=== PATIENT | male | born 1960 | race Caucasian/White ===

== ENCOUNTER 2020-06-07 06:42 | Day surgery (SDC) | payer OTHER ==
[~2020-06-07] VITALS: Ht 167.6 cm; Wt 90.8 kg
[~2020-06-07 06:42] MED LIST: AMLO5 PO; ATOR20; ATOR20 PO; CITA20 PO; CLON.1; Citalopram HBr40 MG PO; ERGO400 PO; Glucosamine Co1 EAC1 PO; HYDPAM50; HYDPAM50 PO; IBUP800; Inderal80 MG; Inderal80 MG PO; LEVSOD100 PO; LEVSOD50 PO; MORP30ER PO; MULTIVITAMINS1 EAC3 PO; NICOTINE PATCH TOP; OXYC10TA19 PO; OXYC5 PO; Prinivil10 MG PO; SUBOXONE 12 MG1 EACH; TRAZ50; Zestril30 MG; Zestril30 MG PO
--- NOTE | 2020-06-07 08:04 | NUR ---
06/07/20 0804 Shabnam Gould SIMETHICONE FLUSH THROUGH BIOPSY PORT ORDERED BY DR KULKARNI
--- NOTE | 2020-06-07 08:52 | NUR ---
06/07/20 0852 Jayna Posada BP 80/53 IN STEP DOWN UNIT, MD CALLAHAN WANTS A 250CC LR IVF BOLUS GIVEN IN RECOVERY.
== END 2020-06-07 09:11 | disposition home or self-care (01) ==
LOC: ORSCSDS 06:42
PROVIDERS: Student in an Organized Health Care Education/Training Program
PROC: 0DBK8ZX Excision of Ascending Colon, Via Natural or Artificial Opening Endoscopic, Diagnostic (ICD-10-PCS; principal; 2020-06-07 08:00)
DX: Z12.11 Encounter for screening for malignant neoplasm of colon (principal); D12.2 Benign neoplasm of ascending colon; K63.89 Other specified diseases of intestine; K57.30 Diverticulosis of large intestine without perforation or abscess without bleeding; K64.8 Other hemorrhoids; K64.4 Residual hemorrhoidal skin tags; I10 Essential (primary) hypertension; E78.5 Hyperlipidemia, unspecified; E03.9 Hypothyroidism, unspecified; Z79.899 Other long term (current) drug therapy
CPT/HCPCS: 88305; J0461; J2370; J2704; J7120

== ENCOUNTER → 2022-08-04 | Outpatient (CLI) | payer OTHER ==
[2022-08-04 13:26] LABS: Body Fluid Crystals NEG (NEGATIVE)
[2022-08-04 14:09] LABS: RBC Count, Synovial Fluid 788000 /mm3 (0-0); WBC Count, Synovial Fluid 1210 /mm3 (0-180)
[2022-08-04 14:14] LABS: BODY FLUID RBC 0.788 M/mm3 (0-0)
[2022-08-04 15:00] LABS: Appearance, Synovial Fluid Turbid (Clear); Color, Synovial Fluid Red (None-P Yel); Eos, Synovial Fluid 6 % (0-2); Lymphs, Synovial Fluid 7 % (0-15); Monocytes/Macrophages, Synovia 57 % (0-65); Neutrophils, Synovial Fluid 30 % (0-24)
== END | disposition home or self-care (01) ==
LOC: LAB 12:00 → LAB SHORT 12:00
PROVIDERS: Physician Assistant Surgical
DX: Z47.1 Aftercare following joint replacement surgery (principal); Z96.652 Presence of left artificial knee joint
CPT/HCPCS: 87070; 87075; 87205; 89051; 89060

== ENCOUNTER 2022-12-05 09:30 | Day surgery (SDC) | payer OTHER ==
[2022-12-05] VITALS (19 sets, daily range): BP systolic 86–117; BP diastolic 53–84
[~2022-12-05] VITALS: Ht 165.1 cm; Wt 90.4 kg
[~2022-12-05 09:30] MED LIST changes: +CYMBALTA30 M1 PO; +GLUCHON PO; +TRAM50 PO
--- NOTE | 2022-12-05 13:11 | NUR ---
1200 History, Chart, Medications and Allergies reviewed before start of procedure.PRE OP TEACHING DONE. UNABLE TO REMOVE GOLD RING ON LEFT HAND RING FINGER. RING WAS TAPED AND CONSENT TO LEAVE RING ON WAS SIGNED
--- NOTE | 2022-12-05 20:30 | NUR ---
ARRIVAL PT ARRIVED TO THE FLOOR FROM PACU WITH A REVISED L KNEE REPLACEMENT. PT ARRIVED IN NO DISTRESS, A/OX4, ON RA, AND AWAKE. PT REPORTS NUMBNESS TO BLE UNDER HIS KNEES, BUT CAN MOVE BOTH LEGS. PEDAL PULSES STRONG, CAP REFILL <3 SECONDS. VSS. PLAN TO AWAIT FOR SPINAL ANESTHESIA TO WEAR OFF, AWAIT FOR FIRST AMBULATION AND POSTOP VOID.
[2022-12-06 04:32] VITALS: BP 116/77
[2022-12-06 06:38] LABS: BASOPHILS ABSOLUTE AUTO 0.01 K/mm3 (0.00-0.23); BASOPHILS PERCENT AUTO 0 % (0-2); EOSINOPHILS PERCENT AUTO 0 % (0-6); Hematocrit 33.4 % (37.0-53.0); Hemoglobin 11.1 g/dL (13.5-17.5); IMMATURE GRAN ABSOLUTE AUTO 0.03 K/mm3 (0.00-0.10); IMMATURE GRAN PERCENT AUTO 0 % (0-1); LYMPHOCYTES ABSOLUTE AUTO 0.76 K/mm3 (0.84-5.20); LYMPHOCYTES PERCENT AUTO 8 % (21-46); MONOCYTES ABSOLUTE AUTO 0.36 K/mm3 (0.16-1.47); MONOCYTES PERCENT AUTO 4 % (4-13); Mean Corpuscular HGB 29.1 pg (26.0-34.0); Mean Corpuscular HGB Conc 33.2 g/dL (31.5-36.5); Mean Corpuscular Volume 88 fL (80-100); Mean Platelet Volume 9.3 fL (9.1-12.4); NEUTROPHILS ABSOLUTE AUTO 8.24 K/mm3 (1.96-9.15); NEUTROPHILS PERCENT AUTO 88 % (41-73); Platelet Count 194 K/mm3 (150-400); RDW Coefficient Variation 13.9 % (11.7-14.2); RDW Standard Deviation 44.6 fL (35.1-46.3); Red Blood Cell Count 3.81 M/mm3 (4.30-5.90)
[2022-12-06 06:59] LABS: Bun/Creatinine Ratio 16.3 (12.0-20.0); Calcium, Blood 8.8 mg/dL (8.5-10.1); Creatinine, Blood 1.23 mg/dL (0.60-1.20); Potassium, Blood 4.5 mmol/L (3.5-5.5)
[2022-12-06 07:34] VITALS: BP 121/75
[2022-12-06] MEDS ORDERED: Percocet 5-3251 EACH PO (09:06)
[2022-12-06] MEDS ORDERED: ASPI81CH PO (09:07)
--- NOTE | 2022-12-06 09:22 | NUR ---
DISCHARGE NOTE: PATIENT WAS EEDUCATED ON DISCHARGE INSTRUCTIONS. HE VERBALIZED UNDERSTANDING OF INSTRUCTIONS AND HAD NO FURTHER QUESTIONS AT THIS TIME. IV WAS TAKEN OUT AND WNL. HIS ALREADY GOT HIS HARD PERSCRIPTIONS FILLED YESTERDAY. HIS LEFT KNEE HAS AN AQUACEL THAT IS C/D/I. DENIES NUMBNESS OR TINGLING. CAN MOVE ALL FINGERS AND TOES WHEN ASKED. HE IS A SBA WITH FWW AND GAIT BELT. PATIENT IS DRESSED AND HAS PERSONAL ITEMS IN THE ROOM GATHERED. HE IS BEING WHEELCHAIRED OUT TO HIS WIFES CAR TO BE TAKEN HOME.
== END 2022-12-06 09:25 | disposition home or self-care (01) ==
LOC: ORSCMMR 09:30 → SURS 09:31 → PRE IP 09:31 → ORSCMMR 09:31 → PRE IP 10:00 → EDSTATUS 11:00 → SURS 19:42 → ORSCMMR 12-06 09:25
PROVIDERS: Orthopaedic Surgery
PROC: 0SRD0J9 Replacement of Left Knee Joint with Synthetic Substitute, Cemented, Open Approach (ICD-10-PCS; principal; 2022-12-05 10:00)
PROC: 0SPD0JZ Removal of Synthetic Substitute from Left Knee Joint, Open Approach (ICD-10-PCS; principal; 2022-12-05 10:00)
PROC: 0SPD04Z Removal of Internal Fixation Device from Left Knee Joint, Open Approach (ICD-10-PCS; principal; 2022-12-05 10:00)
DX: T84.063A Wear of articular bearing surface of internal prosthetic left knee joint, initial encounter (principal); M17.12 Unilateral primary osteoarthritis, left knee; M89.552 Osteolysis, left thigh; I10 Essential (primary) hypertension; E03.9 Hypothyroidism, unspecified; Z87.891 Personal history of nicotine dependence; I48.91 Unspecified atrial fibrillation; Z79.899 Other long term (current) drug therapy
CPT/HCPCS: 36415; 73560-LT; 80048; 85025; 87071; 87075; 87205; 88305; 88331; 97110; 97161; 97530; A9270; C1713; C1776; J0171; J0690; J0735; J1100; J1170; J1885; J2405; J2704; J2795; J3010; J7120

== ENCOUNTER 2023-06-18 17:04 | Emergency (ER) | payer OTHER ==
[~2023-06-18] VITALS: Ht 167.6 cm; Wt 90.7 kg
[~2023-06-18 17:04] MED LIST changes: +ASPI81CH PO; +Percocet 5-3251 EACH PO
[2023-06-18 17:32] LABS: BASOPHILS ABSOLUTE AUTO 0.15 K/mm3 (0.00-0.23); BASOPHILS PERCENT AUTO 2 % (0-2); EOSINOPHILS PERCENT AUTO 4 % (0-6); Hemoglobin 15.7 g/dL (13.5-17.5); IMMATURE GRAN ABSOLUTE AUTO 0.02 K/mm3 (0.00-0.10); IMMATURE GRAN PERCENT AUTO 0 % (0-1); LYMPHOCYTES ABSOLUTE AUTO 2.26 K/mm3 (0.84-5.20); LYMPHOCYTES PERCENT AUTO 30 % (21-46); MONOCYTES ABSOLUTE AUTO 0.68 K/mm3 (0.16-1.47); MONOCYTES PERCENT AUTO 9 % (4-13); Mean Corpuscular HGB 29.7 pg (26.0-34.0); Mean Corpuscular HGB Conc 34.1 g/dL (31.5-36.5); Mean Corpuscular Volume 87 fL (80-100); Mean Platelet Volume 9.2 fL (9.1-12.4); NEUTROPHILS ABSOLUTE AUTO 4.16 K/mm3 (1.96-9.15); NEUTROPHILS PERCENT AUTO 55 % (41-73); Platelet Count 226 K/mm3 (150-400); RDW Coefficient Variation 14.2 % (11.7-14.2); RDW Standard Deviation 45.4 fL (35.1-46.3); Red Blood Cell Count 5.29 M/mm3 (4.30-5.90); White Blood Cell Count 7.57 K/mm3 (4.00-11.30)
[2023-06-18 17:53] LABS: Albumin, Blood 4.1 g/dL (3.4-5.0); Albumin/Globulin Ratio 1.5 (0.8-1.8); Bilirubin, Total 0.3 mg/dL (0.1-1.0); Bun/Creatinine Ratio 19.1 (12.0-20.0); Calcium, Blood 9.8 mg/dL (8.5-10.1); Creatinine, Blood 1.31 mg/dL (0.60-1.20); Globulin, Blood 2.8 g/dL (2.2-4.0); Total Protein, Blood 6.9 g/dL (6.4-8.2)
[2023-06-18 20:06] LABS: Influenza A, PCR NEGATIVE (NEGATIVE); Influenza B, PCR NEGATIVE (NEGATIVE); Resp Syncytial Virus, PCR NEGATIVE (NEGATIVE); SARS-Cov-2 (COVID-19) PCR, MMC NEGATIVE (NEGATIVE)
[2023-06-18 20:12] LABS: Free Thyroxine 1.04 ng/dL (0.70-1.60); Thyroid Stimulating Hormone 6.8 uIU/mL (0.360-4.800)
[2023-06-18 20:30] VITALS: BP 145/83
== END 2023-06-18 20:46 | disposition home or self-care (01) ==
LOC: ER 17:04
PROVIDERS: Student in an Organized Health Care Education/Training Program
DX: R07.89 Other chest pain (principal); I10 Essential (primary) hypertension; R53.83 Other fatigue; F32.A Depression, unspecified; F17.210 Nicotine dependence, cigarettes, uncomplicated; Z88.6 Allergy status to analgesic agent; Z79.899 Other long term (current) drug therapy; Z79.82 Long term (current) use of aspirin
CPT/HCPCS: 0241U; 71046; 80053; 83735; 84439; 84443; 84484; 85025; 93005; 93010; 99284-25

== ENCOUNTER 2023-11-15 13:56 | Inpatient (IN) | payer OTHER ==
[~2023-11-15] VITALS: Ht 167.6 cm; Wt 102.4 kg
[2023-11-17 07:06] VITALS: BP 143/98
== END 2023-11-17 13:22 | disposition home or self-care (01) | DRG 871 ==
LOC: ER 13:56 → MEDS 21:27 → PCU 21:27 → MEDS 11-16 18:40
PROVIDERS: ADMIT Internal Medicine
DX: A41.9 Sepsis, unspecified organism (principal); J18.9 Pneumonia, unspecified organism; N17.9 Acute kidney failure, unspecified; R65.20 Severe sepsis without septic shock; E83.52 Hypercalcemia; E78.5 Hyperlipidemia, unspecified; I10 Essential (primary) hypertension; E03.9 Hypothyroidism, unspecified; F41.8 Other specified anxiety disorders; G89.29 Other chronic pain; Z88.6 Allergy status to analgesic agent; Z79.890 Hormone replacement therapy; Z96.641 Presence of right artificial hip joint; Z96.652 Presence of left artificial knee joint; Z98.1 Arthrodesis status; Z87.891 Personal history of nicotine dependence

== ENCOUNTER 2024-01-11 19:33 | Emergency (ER) | payer OTHER ==
[~2024-01-11] VITALS: Ht 167.6 cm; Wt 99.8 kg
[~2024-01-11 19:33] MED LIST changes: +AZIT500 PO; +CEFP200 PO; +DULOXETINE HCL60 M1 PO; +HYDHCL25 PO; +HYDROCODONE-AC1 EA10 PO; +HYDROCODONE-AC1 EA19 PO; +LACT PO; +LEVSOD112 PO; +ONDA4ODT MM; +PREG150 PO; +PREG50 PO; +TRAZ50 PO; +ZESTRIL40 M1 PO
[2024-01-11] MEDS ORDERED: Ondansetron HCl 2 MG / ML 2ML Vial IV ONE (19:40)
[2024-01-11 20:28] LABS: Influenza A, PCR NEGATIVE (NEGATIVE); Influenza B, PCR NEGATIVE (NEGATIVE); Resp Syncytial Virus, PCR NEGATIVE (NEGATIVE); SARS-Cov-2 (COVID-19) PCR, MMC NEGATIVE (NEGATIVE)
[2024-01-11 20:33] LABS: BASOPHILS ABSOLUTE AUTO 0.08 K/mm3 (0.00-0.23); BASOPHILS PERCENT AUTO 1 % (0-2); EOSINOPHILS ABSOLUTE AUTO 0.19 K/mm3 (0.00-0.68); EOSINOPHILS PERCENT AUTO 2 % (0-6); Hematocrit 39.7 % (37.0-53.0); Hemoglobin 12.8 g/dL (13.5-17.5); IMMATURE GRAN ABSOLUTE AUTO 0.03 K/mm3 (0.00-0.10); IMMATURE GRAN PERCENT AUTO 0 % (0-1); LYMPHOCYTES ABSOLUTE AUTO 1.28 K/mm3 (0.84-5.20); LYMPHOCYTES PERCENT AUTO 15 % (21-46); MONOCYTES ABSOLUTE AUTO 0.71 K/mm3 (0.16-1.47); MONOCYTES PERCENT AUTO 8 % (4-13); Mean Corpuscular HGB 28.4 pg (26.0-34.0); Mean Corpuscular HGB Conc 32.2 g/dL (31.5-36.5); Mean Corpuscular Volume 88 fL (80-100); Mean Platelet Volume 9.1 fL (9.1-12.4); NEUTROPHILS ABSOLUTE AUTO 6.28 K/mm3 (1.96-9.15); NEUTROPHILS PERCENT AUTO 73 % (41-73); Platelet Count 262 K/mm3 (150-400); RDW Standard Deviation 45.3 fL (35.1-46.3); Red Blood Cell Count 4.51 M/mm3 (4.30-5.90); White Blood Cell Count 8.57 K/mm3 (4.00-11.30)
[2024-01-11 20:54] LABS: Albumin, Blood 3.7 g/dL (3.4-5.0); Albumin/Globulin Ratio 1.1 (0.8-1.8); Bilirubin, Total 0.5 mg/dL (0.1-1.0); Bun/Creatinine Ratio 26.9 (12.0-20.0); Calcium, Blood 9.6 mg/dL (8.5-10.1); Creatinine, Blood 1.86 mg/dL (0.60-1.20); Globulin, Blood 3.4 g/dL (2.2-4.0); Potassium, Blood 4.5 mmol/L (3.5-5.5); Total Protein, Blood 7.1 g/dL (6.4-8.2)
[2024-01-11] MEDS ORDERED: NS 1,000 ML IV SCH (21:00)
[2024-01-11 21:05] LABS: Magnesium, Blood 2.4 mg/dL (1.6-2.4)
[2024-01-11 22:00] LABS: Source, Urine Clean Catch
[2024-01-11 22:06] LABS: Base Excess Venous 4.4 mmol/L; Bicarbonate Venous 26.1 mmol/L (24.0-30.0); PCO2 Venous 63 mmHg (38-42)
[2024-01-11 22:16] LABS: Bilirubin, Urine Neg (Neg); Blood, Urine 1+ (Neg); Glucose Qualitative, Urine Neg (Neg); Ketones, Urine 1+ (Neg); Leukocyte Esterase, Urine Neg (Neg); Nitrite, Urine Neg (Neg); Protein, Urine 1+ (Neg); Specific Gravity, Urine 1.015 (1.003-1.022); Urobilinogen, Urine NORM (Normal)
[2024-01-11 22:24] LABS: Appearance, Urine Clear (Clear); Color, Urine Yellow (P-Yellow)
[2024-01-11 22:26] LABS: Bacteria Few /hpf; Red Blood Cells, Urine 0-2 /hpf (0-2); Squamous Epithelial Cells Few /hpf (Few); White Blood Cells, Urine 0-2 /hpf (0-5)
[2024-01-12] VITALS: BP 121/88
[2024-01-12] MEDS ORDERED: BUPRENORPHINE HC2 MG SL ×2 (11:42)
== END 2024-01-12 00:08 | disposition home or self-care (01) ==
LOC: ER 19:33
PROVIDERS: Emergency Medicine; Student in an Organized Health Care Education/Training Program
DX: G93.41 Metabolic encephalopathy (principal); E87.29 Other acidosis; N17.9 Acute kidney failure, unspecified; T40.495A Adverse effect of other synthetic narcotics, initial encounter; Z88.6 Allergy status to analgesic agent; Z79.899 Other long term (current) drug therapy; I10 Essential (primary) hypertension; Z87.891 Personal history of nicotine dependence
CPT/HCPCS: 0241U; 71045; 80053; 81001; 82140; 82803; 83735; 84484; 85025; 93005; 93010; 99285-25; J7030

== ENCOUNTER 2024-01-12 08:48 | Inpatient (IN) | payer OTHER ==
[2024-01-12] VITALS (20 sets, daily range): BP systolic 71–143; BP diastolic 53–86
[~2024-01-12] VITALS: Ht 167.6 cm; Wt 98.0 kg
[2024-01-12 09:46] LABS: BASOPHILS ABSOLUTE AUTO 0.06 K/mm3 (0.00-0.23); BASOPHILS PERCENT AUTO 1 % (0-2); EOSINOPHILS ABSOLUTE AUTO 0.24 K/mm3 (0.00-0.68); EOSINOPHILS PERCENT AUTO 3 % (0-6); Hematocrit 37.7 % (37.0-53.0); Hemoglobin 12.5 g/dL (13.5-17.5); IMMATURE GRAN ABSOLUTE AUTO 0.02 K/mm3 (0.00-0.10); IMMATURE GRAN PERCENT AUTO 0 % (0-1); LYMPHOCYTES ABSOLUTE AUTO 1.58 K/mm3 (0.84-5.20); LYMPHOCYTES PERCENT AUTO 22 % (21-46); MONOCYTES ABSOLUTE AUTO 0.81 K/mm3 (0.16-1.47); MONOCYTES PERCENT AUTO 11 % (4-13); Mean Corpuscular HGB 29.3 pg (26.0-34.0); Mean Corpuscular HGB Conc 33.2 g/dL (31.5-36.5); Mean Corpuscular Volume 89 fL (80-100); Mean Platelet Volume 11.3 fL (9.1-12.4); NEUTROPHILS ABSOLUTE AUTO 4.49 K/mm3 (1.96-9.15); NEUTROPHILS PERCENT AUTO 62 % (41-73); Platelet Count 409 K/mm3 (150-400); RDW Coefficient Variation 14.4 % (11.7-14.2); RDW Standard Deviation 45.8 fL (35.1-46.3); Red Blood Cell Count 4.26 M/mm3 (4.30-5.90)
[2024-01-12 10:04] LABS: Albumin, Blood 3.5 g/dL (3.4-5.0); Albumin/Globulin Ratio 1.1 (0.8-1.8); Bilirubin, Total 0.4 mg/dL (0.1-1.0); Bun/Creatinine Ratio 27.4 (12.0-20.0); Calcium, Blood 9.5 mg/dL (8.5-10.1); Creatinine, Blood 1.46 mg/dL (0.60-1.20); Globulin, Blood 3.2 g/dL (2.2-4.0); Potassium, Blood 4.5 mmol/L (3.5-5.5); Total Protein, Blood 6.7 g/dL (6.4-8.2)
[2024-01-12] MEDS ORDERED: NS 1,000 ML IV SCH ×2 (10:15→13:00)
[2024-01-12] MEDS ORDERED: LORazepam 2 MG/ML 1ML Injection IV ONE (10:30)
[2024-01-12 10:33] LABS: Base Excess Venous -0.8 mmol/L; Bicarbonate Venous 22.4 mmol/L (24.0-30.0); PCO2 Venous 60 mmHg (38-42); pH Blood Venous 7.25 (7.34-7.37)
[2024-01-12] MEDS ORDERED: BUPRENORPHINE HC2 MG SL ×2 (11:42)
[2024-01-12] MEDS ORDERED: Haloperidol Lactate Inj. 5 MG/ML Injection IV ONE (13:25)
[2024-01-12] MEDS ORDERED: Naloxone HCl 0.4MG / ML 1ML Vial IV PRN (13:55)
[2024-01-12 14:15] LABS: Source, Urine Clean Catch
[2024-01-12 14:22] LABS: Appearance, Urine Clear (Clear); Bilirubin, Urine Neg (Neg); Blood, Urine Neg (Neg); Glucose Qualitative, Urine Neg (Neg); Ketones, Urine 1+ (Neg); Leukocyte Esterase, Urine Neg (Neg); Nitrite, Urine Neg (Neg); Protein, Urine Neg (Neg); Urobilinogen, Urine NORM (Normal)
[2024-01-12 14:23] LABS: Color, Urine Pale Yellow (P-Yellow)
[2024-01-12 14:33] LABS: U Amphetamine Screen Not Detected; U Barbituate Screen Not Detected; U Benzodiazapine Screen Not Detected; U Buprenorphine Screen DETECTED; U Cannabinoids Screen DETECTED; U Cocaine Screen Not Detected; U Methadone Screen Not Detected; U Methamphetamine Screen Not Detected; U Opiates Screen Not Detected; U Oxycodone Screen Not Detected; U Phencyclidine Screen Not Detected
[2024-01-12] MEDS ORDERED: Naloxone HCl 0.4MG / ML 1ML Vial IV ONE (15:55)
[2024-01-12] MEDS ORDERED: Nicotine 14 MG PATCH TOP ONE (16:00)
[2024-01-12] MEDS ORDERED: Pregabalin 50 MG Capsule PO SCH (16:00)
[2024-01-12] MEDS ORDERED: LORazepam 2 MG/ML 1ML Injection ONE (16:40)
[2024-01-12] MEDS ORDERED: OLANZapine 10 MG Vial IM ONE (16:40)
[2024-01-12] MEDS ORDERED: LORazepam 2 MG/ML 1ML Injection IV PRN (16:40)
[2024-01-12] MEDS ORDERED: Lactated Ringer's 1,000 ML IV ONE (19:32)
[2024-01-12 20:04] LABS: PCO2 Venous 41.2 mmHg (38-42); pH Blood Venous 7.32 (7.34-7.37)
[2024-01-12 20:35] LABS: Source, Urine Foley catheter
[2024-01-12 20:39] LABS: Bilirubin, Urine Neg (Neg); Blood, Urine Neg (Neg); Glucose Qualitative, Urine Neg (Neg); Ketones, Urine 3+ (Neg); Leukocyte Esterase, Urine Neg (Neg); Nitrite, Urine Neg (Neg); Protein, Urine Neg (Neg); Specific Gravity, Urine 1.015 (1.003-1.022); Urobilinogen, Urine NORM (Normal)
[2024-01-12 20:41] LABS: Appearance, Urine Clear (Clear); Color, Urine Yellow (P-Yellow)
[2024-01-12] MEDS ORDERED: Lactated Ringer's 1,000 ML IV SCH (21:20)
[2024-01-13] VITALS (32 sets, daily range): BP systolic 89–140; BP diastolic 48–102
[2024-01-13 04:31] LABS: BASOPHILS ABSOLUTE AUTO 0.06 K/mm3 (0.00-0.23); BASOPHILS PERCENT AUTO 1 % (0-2); EOSINOPHILS ABSOLUTE AUTO 0.23 K/mm3 (0.00-0.68); EOSINOPHILS PERCENT AUTO 4 % (0-6); Hematocrit 37.3 % (37.0-53.0); Hemoglobin 11.7 g/dL (13.5-17.5); IMMATURE GRAN ABSOLUTE AUTO 0.01 K/mm3 (0.00-0.10); IMMATURE GRAN PERCENT AUTO 0 % (0-1); LYMPHOCYTES ABSOLUTE AUTO 1.23 K/mm3 (0.84-5.20); LYMPHOCYTES PERCENT AUTO 21 % (21-46); MONOCYTES ABSOLUTE AUTO 0.72 K/mm3 (0.16-1.47); MONOCYTES PERCENT AUTO 13 % (4-13); Mean Corpuscular HGB Conc 31.4 g/dL (31.5-36.5); Mean Corpuscular Volume 89 fL (80-100); NEUTROPHILS ABSOLUTE AUTO 3.51 K/mm3 (1.96-9.15); NEUTROPHILS PERCENT AUTO 61 % (41-73); Platelet Count 218 K/mm3 (150-400); RDW Coefficient Variation 14.2 % (11.7-14.2); RDW Standard Deviation 45.9 fL (35.1-46.3); Red Blood Cell Count 4.18 M/mm3 (4.30-5.90); White Blood Cell Count 5.76 K/mm3 (4.00-11.30)
[2024-01-13 05:01] LABS: Anion Gap 11 mmol/L (3-11); Blood Urea Nitrogen 28 mg/dL (8-24); Bun/Creatinine Ratio 24.8 (12.0-20.0); CO2, Blood 24 mmol/L (21-32); Calcium, Blood 8.9 mg/dL (8.5-10.1); Chloride, Blood 111 mmol/L (98-108); Creatinine, Blood 1.13 mg/dL (0.60-1.20); Glomerular Filtration Rate 73 (60-); Glucose, Blood 64 mg/dL (70-99); Phosphorus, Blood 1.6 mg/dL (2.5-4.9); Potassium, Blood 4.4 mmol/L (3.5-5.5); Sodium, Blood 142 mmol/L (136-145)
[2024-01-13] MEDS ORDERED: D5W-LR 1,000 ML IV SCH (05:40)
[2024-01-13] MEDS ORDERED: Dextrose 50% 50 ML Syringe IV ONE (05:40)
--- NOTE | 2024-01-13 06:40 | NUR ---
191 Assumed care of pt, bedside report completed, at bedside. Reviewed shift plan of care with , all questions answered. 1944 MD at [facility]. Reviewed pt condition and plan for the shift. New orders. received. 2129 Pt awake and agitation/combative, requiring 2-3 staff members to keep in bed. Will not keep BiPap on, O2 via NC placed. Concerned regarding prior somnulence, will monitor for need of supplemental medication for anxiety/agitation. 2229 Ativan 1mg IVP given with good result. Pt able to keep BiPap on at this time. 0500 Pt removed BiPap and attempted to get out pf bed. Pt speaking at this time, though refuses to answer questions, repeated attempts to climb out of bed. Able to be off BiPap at this time, pt on RA, will continue cont pulse ox. Ativan 1mg IVP given. 0545 Serum glucose 64, CBG 56. Call to MD for new orders. Will give D50 and change IVF to D5LR. 0630 CBG 114, requiring very frequent redirection to stay in bed and not pull at IV/Moore/Tele. Will report to Day shift RN and review neuro status.
[2024-01-13] MEDS ORDERED: Enoxaparin 40 MG/0.4 ML SYR SC SCH (09:00)
[2024-01-13] MEDS ORDERED: Nicotine 14 MG PATCH TOP SCH (09:00)
[2024-01-13] MEDS ORDERED: Naloxone HCl 0.4MG / ML 1ML Vial IV ONE (11:00)
--- NOTE | 2024-01-13 11:24 | NUR ---
PT RECEIVED 0.4MG NARCAN IVP, THERE WAS NO APPRECIABLE RESPONSE TO THE NARCAN PUSH. PT WAKES TO VERBAL STIMULI, HE IS RESTING WELL WTITH EYES CLOSED AT THIS TIME. AGITATION REMAINS WELL CONTROLLED SINCE AM DOSE OF ATIVAN. PT REMAINS WITH BIPAP SETTINGS 20/10 AND 35%, HE IS TOLERATING BIPAP WELL.
[2024-01-13] MEDS ORDERED: Naloxone HCl 1MG / ML 2ML SYR IV ONE (12:40)
[2024-01-13 13:06] LABS: Free Thyroxine 0.94 ng/dL (0.70-1.60); Triiodothyronine, Free 1.66 pg/mL (2.18-3.98)
--- NOTE | 2024-01-13 13:30 | NUR ---
PT WAS ALERT, LOOKING AROUND AT FAMILY, STATED THAT CONCTACTS MIGHT BE IN EYES, SHE ATTEMPTED TO REMOVE THEM PT BECAME VERY AGITATED, REMAINS CONFUSED PULLING AT LINES. 1MG NARCAN ADMINISTERED WITHOUT CHANGE TO MENTATION, HE WAS AGITATED BEFORE ADMINISTRATION. NUMEROUS ATTEMPTS ARE MADE TO REDIRECT WITHOUT SUCCESS. REPEAT DOSE OF ATIVAN WAS GIVE, WHICH TOOK ABOUT 10 MINUTES FOR PT TO CALM DOWN ADN STOP PULLING LINES, AND ATTEMPTING TO EXIT BED. PT BECOMES MORE AGITATED WHEN FAMILY GETS CLOSE
[2024-01-13] MEDS ORDERED: DiphenhydrAMINE HCl 50 MG Cap PO ONE (15:00)
--- NOTE | 2024-01-13 15:50 | NUR ---
REPORT TO MINDY RN IN ICU. PT AND BELONGINGS WERE TRANSFERED TO ICU 3. PT'S HOME MEDICATIONS WERE COUNTED, SPOUSE HAD REPORTED THAT 2 BUPRENORPHINE WERE MISSING FROM HIS BOTTLE THIS WAS CONFIRMED THIS RN COUNTED. IT WAS NOTED THAT 10 CAPSULES OF 100mg LYRICA ARE ALSO MISSING FROM HIS BOTTLES.
[2024-01-13 16:32] LABS: Base Excess Venous -0.8 mmol/L; Bicarbonate Venous 24.3 mmol/L (24.0-30.0); PCO2 Venous 30.9 mmHg (38-42); pH Blood Venous 7.48 (7.34-7.37)
[2024-01-13] MEDS ORDERED: LORazepam 2 MG/ML 1ML Injection IV PRN (16:55)
--- NOTE | 2024-01-13 17:59 | NUR ---
ASSUMPTION OF CARE/ SUMMARY PT ARRIVED TO ICU FROM PCU VIA GURNEY, SLIDER SHEET TX TO ICU BED. PT ALERT UPON ARRIVAL BUT INCONSISTENLY FOLLOWING COMMANDS. OCCASIONALLY RESPONDING TO QUESTIONS WITH RANDOM WORDS. PT PULLING LINES AND CORDS OFF, ATTEMPTING TO GET OUT OF BED, VERY DIFFICULT TO REDIRECT. PRECEDEX GTT INITIATED. PT CURRENTLY RESTING COMFORTABLY. CONDOM CATHETER PLACED PT IS INCONTINENT OF URINE. NO BM. MONITORING CLOSELY SITTER IS NO LONGER AT BEDSIDE.
[2024-01-13 22:54] LABS: Base Excess Venous 2.8 mmol/L; Bicarbonate Venous 27.1 mmol/L (24.0-30.0); PCO2 Venous 33.4 mmHg (38-42)
[2024-01-14] VITALS (18 sets, daily range): BP systolic 116–171; BP diastolic 53–109
[2024-01-14] MEDS ORDERED: LORazepam 2 MG/ML 1ML Injection IV ONE (04:40)
[2024-01-14] MEDS ORDERED: OLANZapine 10 MG Vial IM ONE (04:40)
[2024-01-14] MEDS ORDERED: OLANZapine 10 MG Vial ONE (04:42)
--- NOTE | 2024-01-14 05:02 | NUR ---
VISHNU TEJADA PT WOKE SPONTANIOUSLY AND WAS TRYING TO GET OUT OF BED UNSAFELY. THIS RN ATTEMPTED TO REORIENT AND REDIRECT PT; PT STATED THAT HE HAD TO URINATE AND THIS RN ATTEMPTING TO GET URINAL FOR PT. HE WAS STATING THAT WE WERE LIEING AND WAS YELLING/SCREAMING OUT FOR HELP. HE THEN STARTED TO SWING HIS FISTS AT THIS RN AND TWO OTHER RN'S FOLLOWED BY TRYING TO KICK A FOURTH RN. VISHNU TEJADA WAS CALLED OVERHEAD AND A CALL WAS MADE TO HOSPITALIST. PT PLACED IN 4-POINT RESTRAINTS. NEW ORDERS PROVIDED FOR ADDITIONAL ATIVAN, ZYPREXA, AND TO PLACE A LEVINE CATH FOR RETENTION.
[2024-01-14 05:03] LABS: Source, Urine Foley catheter
[2024-01-14 05:06] LABS: Bilirubin, Urine Neg (Neg); Blood, Urine Neg (Neg); Glucose Qualitative, Urine Neg (Neg); Ketones, Urine 2+ (Neg); Leukocyte Esterase, Urine Neg (Neg); Nitrite, Urine Neg (Neg); Protein, Urine Neg (Neg); Specific Gravity, Urine 1.005 (1.003-1.022); Urobilinogen, Urine NORM (Normal)
[2024-01-14 05:22] LABS: Appearance, Urine Clear (Clear); Color, Urine Yellow (P-Yellow)
[2024-01-14] MEDS ORDERED: OLANZapine 10 MG Vial IM PRN (05:40)
--- NOTE | 2024-01-14 07:15 | NUR ---
END OF SHIFT SUMMARY PT WAS LABILE WITH RASS ANYWHERE FROM -3 TO +4; PRECEDEX INFUSED ALL NIGHT AND TITRATED UP TO 1.4MCG/KG/HR; HE WAS STARTING TO MAKE FULL STATEMENTS WHEN RASS +4; PRN ATIVAN AND ZYPREXA GIVEN. SPO2 >92% ON RA. AFEBRILE. HR 70-80'S; BP STABLE. NO BM THIS SHIFT. LEVINE PLACED AFTER VISHNU YANG. D5LR INFUSING AT 125ML/HR. REPORT GIVEN TO AM RN.
[2024-01-14] MEDS ORDERED: Ondansetron HCl 2 MG / ML 2ML Vial ONE (12:32)
[2024-01-14] MEDS ORDERED: Ondansetron HCl 2 MG / ML 2ML Vial IV PRN (12:35)
--- NOTE | 2024-01-14 13:49 | NUR ---
Upon receiving a referral for spiritual care, I visited the patient. His spouse, Lainey, was present. She told me about the many stressors that they are facing. After yrs of caring for her parents they and so I supplied grief support. She expressed her concerns about her 's complicated medical case, her own stress levels and mentioned her gratitude for the family, presybeterian members and friends that were praying. I gladly provided prayer and anxiety containment. Lainey voiced her appreciation for the visit. Spiritual care will remain available.
[2024-01-14] MEDS ORDERED: Lidocaine 2% Jelly Uro-Jet UR ONE (16:25)
--- NOTE | 2024-01-14 18:08 | NUR ---
Summary. Pt rested in bed this shift. Precedex off since the am, pt mentation improved. Pt globally confused but oriented to self, surroundings, person. Spouse at bedside for much of shift. Pt is calm and cooperative with care, vs stable. See chart for further details.
[2024-01-14] MEDS ORDERED: Acetaminophen 325 MG TABLET PO PRN (21:25)
--- NOTE | 2024-01-14 22:29 | NUR ---
ASSUMED CARE AT 1900 PT LAYING IN BED IRRITABLE. HE IS ALERT BUT ONLY ORIENTED TO SELF AND PERSON; HE IS FORMING SENTENCES BUT IS PARANOID AND LABILE WITH MOOD; HE IS STATING THAT HIS DID THIS TO HIM AND THAT HE IS NOT IN THE HOSPITAL; IS AT BEDSIDE. HE IS OVER ESTAMATING HIS ABILITY TO SAFELY GET OUT OF BED. WITH A WALKER HE STOOD AT THE EDGE OF THE BED AND WAS MODERATLY TREMULOUS ALONG WITH HIS HR INCREASING TO THE 150'S. HE IS FREQUENTLY ASKING TO GET UP TO USE THE RESTROOM AND CANNOT BE REORIENTED OR REDIRECTED FROM THIS STIMULUS; HAS BEEN EDUCATED FREQUENTLY BY SEVERAL DIFFERENT RN'S AND HIS THAT HE HAS A CATH AND HE CONTINOUS TO FIXATE ON NEEDING TO URINATE; PRN ZYPREXA GIVEN AND MILDLY HELPFUL; PRECEDEX OFF. SPO2 > 94% ON RA. TEMP OF 100.3, CALLED HOSPITALIST WHO GAVE ORDERS FOR PRN TYLENOL. HR 120-130'S WHILE AT REST IN BED. BP STABLE. ABD MODERATLY DISTENDED AND MORE FIRM; NO BM TODAY. LEVINE IN PLACE AND DRAINING TO GRAVITY. D5W/LR INFUSING AT 125ML/HR. SEE SHIFT ASSESSMENT FOR FULL ASSESSMENT.
--- NOTE | 2024-01-14 23:18 | NUR ---
UPDATE PT CONT TO BE RESTLESS AND ATTEMPTING TO UNSAFELY GET OUT OF BED NEEDED TO URINATE. CONT TO BE EDUCATED ON CATH AND ATTEMPTING TO REORIENT PT TO THE HOSPITAL. PT AT BEDSIDE WHO IS ALSO ATTEMPTING TO KEEP PT SAFE. PT IS ANGRY AND MAKING STATEMENT LIKE "I'M SO MAD!"; ATTEMPTING TO DE ESCALATE PT BEHAVIOR BUT HE CONT TO BE ANGRY. CALL MADE TO HOSPITALIST WHO PROVIDED ORDERS TO RESTART PRECEDEX AND TRANSFER BACK TO ICU STATUS. PT CONT AT BEDSIDE. PRECEDEX STARTED AT 0.2MCG/KG/HR.
[2024-01-15] VITALS (17 sets, daily range): BP systolic 103–169; BP diastolic 59–98
[2024-01-15 03:35] LABS: BASOPHILS ABSOLUTE AUTO 0.05 K/mm3 (0.00-0.23); BASOPHILS PERCENT AUTO 1 % (0-2); EOSINOPHILS ABSOLUTE AUTO 0.21 K/mm3 (0.00-0.68); EOSINOPHILS PERCENT AUTO 4 % (0-6); IMMATURE GRAN ABSOLUTE AUTO 0.01 K/mm3 (0.00-0.10); IMMATURE GRAN PERCENT AUTO 0 % (0-1); LYMPHOCYTES ABSOLUTE AUTO 0.94 K/mm3 (0.84-5.20); LYMPHOCYTES PERCENT AUTO 17 % (21-46); MONOCYTES ABSOLUTE AUTO 0.56 K/mm3 (0.16-1.47); MONOCYTES PERCENT AUTO 10 % (4-13); Mean Corpuscular HGB 28.9 pg (26.0-34.0); Mean Corpuscular HGB Conc 33.3 g/dL (31.5-36.5); Mean Corpuscular Volume 87 fL (80-100); Mean Platelet Volume 8.7 fL (9.1-12.4); NEUTROPHILS ABSOLUTE AUTO 3.73 K/mm3 (1.96-9.15); NEUTROPHILS PERCENT AUTO 68 % (41-73); Platelet Count 221 K/mm3 (150-400); RDW Coefficient Variation 14.2 % (11.7-14.2); RDW Standard Deviation 44.6 fL (35.1-46.3); Red Blood Cell Count 4.15 M/mm3 (4.30-5.90)
[2024-01-15 03:55] LABS: Bun/Creatinine Ratio 9.1 (12.0-20.0); Calcium, Blood 8.7 mg/dL (8.5-10.1); Creatinine, Blood 0.99 mg/dL (0.60-1.20); Potassium, Blood 3.5 mmol/L (3.5-5.5)
--- NOTE | 2024-01-15 06:37 | NUR ---
END OF SHIFT SUMMARY NO ACUTE EVENTS SINCE LAST NOTE. PRECEDEX TITRATED UP TO 0.4MCG/KG/HR TO ACHIEVE A RASS OF -1; HE HAS BEEN SLEEPING AND WAKES EASILY TO VERBAL STIMULI. PLACED ON 2L NC WHILE SLEEPING TO MAINTAIN SPO2 >90%. TEMP IMPROVED SINCE TYLENOL. HR 90-120. SBP 120-130'S. ABD CONT TO BE DISTENDED; NO BM THIS SHIFT. LEVINE IN PLACE AND DRAINING ADEQUATE OUTPUT. D5W/LR INFUSING AT 125ML/HR. WILL REPORT TO AM RN WHEN AVAILABLE.
[2024-01-15] MEDS ORDERED: D5W-1/2NS 1,000 ML IV SCH (07:40)
[2024-01-15 08:08] LABS: RETIC HGB EQUIVALENT 31.9 pg (28.20-36.60); RETICULOCYTE ABSOLUTE 0.0901 M/mm3 (0.0200-0.1100); RETICULOCYTE COUNT PERCENT 2.17 % (0.50-2.50)
[2024-01-15 08:23] LABS: Percent Saturation 7.8 % (20.0-50.0)
--- NOTE | 2024-01-15 09:08 | NUR ---
ASSUMED CARE BEDSIDE REPORT FROM GAGAN AGUIRRE AT 0700. PT RESTING IN BED. WAKES c VERBAL STIMULI, RETURNS TO SLEEP WHEN UNDISTURBED. PRECEDEX GTT INFUSING, RASS -1, TITRATING DOWN. FOLLOWS SIMPLE COMMANDS. RESPONSES TO NAME AND NODS HEAD TO QUESTIONS. LUNGS CLEAR. RA, O2 SATS >92%. SR, RATE 70-80'S. BP STABLE. ABD ROUND, SOFT, NON TENDER. BT X 4. LEVINE PATENT, DRAINING CLEAR YELLOW URINE TO GRAVITY. PIV X 1. D5 1/2NS INFUSING AT 125 ML/HR. WILL CONTINUE PLAN OF CARE.
--- NOTE | 2024-01-15 17:25 | NUR ---
Pt. is awake and sititng up in a chair. Pt. is pleasant and is known to this buildings painter from previous hospital visits. Facilitated some life review and considered matters fo lesley and belief. Spouse arrived to give encouragement when this buildings painter was called to the ED. Pt. and spouse both verbalize gratitude for the spiritual life visit and welcome this buildings painter to return.
--- NOTE | 2024-01-15 17:50 | NUR ---
SHIFT SUMMARY PT REMAINED OFF PRECEDEX GTT. A&OX 3. CONVERSING AT BASELINE PER FAMILY. PLEASANT, FOLLOWING DIRECTIONS. MINIMAL RECALL OF EVENTS DURING HOSPITALIZATION. LUNGS CLEAR. SR, RATE 70-80'S. BP STABLE. TOLERATING PO WELL. D5 1/2NS D/C'D. STANDBY ASSIST. LEVINE REMOVED, URINATED TWICE SINCE REMOVAL. STATUS CHANGED TO PCU. SO TIANA AT BEDSIDE AND UPDATED. WILL CONTINUE PLAN OF CARE UNTIL REPORT TO ONCOMING NURSE.
[2024-01-15] MEDS ORDERED: Propranolol HCL 20 MG TAB PO PRN (19:35)
--- NOTE | 2024-01-15 20:22 | NUR ---
ASSUMPTION OF CARE: RECEIVED REPORT FROM SERGIO AGUIRRE AT 1900. PT ALERT AND ORIENTED X3. UNABLE TO STATE THE DATE/YEAR. PT PLEASANT, FOLLOWING COMMANDS AND ABLE TO MAKE NEEDS KNOWN. ON RA WITH SPO2 >95% WITH SPOT CHECKS. DENIES SOB. PEANUT VENDOR IN PLACE, SR/ST WITH HR 90'S-150'S AT TIMES. SBP 150'S. DENIES CHEST PAIN/PRESSURE. PT ABLE TO AMBULATE TO THE BATHROOM WITH ASSISTANCE. PIV TO LFA, PATENT AND SALINE LOCKED. TOLERATING PO INTAKE WELL. NO BM YET THIS SHIFT. VOIDING YELLOW URINE. AT BEDSIDE AT START OF SHIFT, UPDATED TO PLAN OF CARE BEFORE GOING HOME FOR THE NIGHT. BED LOW AND LOCKED, CALL LIGHT IN REACH.
[2024-01-16] VITALS (7 sets, daily range): BP systolic 135–156; BP diastolic 92–103
[2024-01-16 03:24] LABS: BASOPHILS ABSOLUTE AUTO 0.05 K/mm3 (0.00-0.23); BASOPHILS PERCENT AUTO 1 % (0-2); EOSINOPHILS ABSOLUTE AUTO 0.37 K/mm3 (0.00-0.68); EOSINOPHILS PERCENT AUTO 6 % (0-6); Hematocrit 40.6 % (37.0-53.0); Hemoglobin 13.3 g/dL (13.5-17.5); IMMATURE GRAN ABSOLUTE AUTO 0.01 K/mm3 (0.00-0.10); IMMATURE GRAN PERCENT AUTO 0 % (0-1); LYMPHOCYTES ABSOLUTE AUTO 1.14 K/mm3 (0.84-5.20); LYMPHOCYTES PERCENT AUTO 19 % (21-46); MONOCYTES ABSOLUTE AUTO 0.63 K/mm3 (0.16-1.47); MONOCYTES PERCENT AUTO 10 % (4-13); Mean Corpuscular HGB 28.2 pg (26.0-34.0); Mean Corpuscular HGB Conc 32.8 g/dL (31.5-36.5); Mean Corpuscular Volume 86 fL (80-100); Mean Platelet Volume 8.7 fL (9.1-12.4); NEUTROPHILS ABSOLUTE AUTO 3.87 K/mm3 (1.96-9.15); NEUTROPHILS PERCENT AUTO 64 % (41-73); Platelet Count 236 K/mm3 (150-400); RDW Coefficient Variation 14.4 % (11.7-14.2); RDW Standard Deviation 44.7 fL (35.1-46.3); Red Blood Cell Count 4.71 M/mm3 (4.30-5.90); White Blood Cell Count 6.07 K/mm3 (4.00-11.30)
[2024-01-16] MEDS ORDERED: QUEtiapine Fumarate 50 MG TAB PO ONE (03:30)
[2024-01-16 03:39] LABS: Bun/Creatinine Ratio 6.4 (12.0-20.0); Calcium, Blood 8.9 mg/dL (8.5-10.1); Creatinine, Blood 1.1 mg/dL (0.60-1.20); Potassium, Blood 3.8 mmol/L (3.5-5.5)
[2024-01-16] MEDS ORDERED: FentaNYL Citrate 50 MCG/ML 2 ML Injection IV PRN (06:00)
--- NOTE | 2024-01-16 06:14 | NUR ---
SHIFT SUMMARY: PT VERY AGGITATED THIS MORNING. STATING THAT HE IS LEAVING SOON HIS ARRIVES. PT HALLUCINATING. STATING HE HEARS CHILDREN VOICES, SEES CATS UNDER HIS BED AND SPIDERS ON THE COFFMAN. PT NOT REDIRECTABLE OR FOLLOWING COMMANDS. PT REMINDED THAT HE IS IN THE HOSPITAL. PT FREQUENTLY TELLING THIS RN TO GET OUT OF ROOM. PT ASKED THIS RN TO CALL HIS TO COME AND GET HIM. CALLED HIS AND UPDATED TO PT CONDITION. AT BEDSIDE. CALL ALSO PLACED TO DR. GONG WITH PT UPDATE. DR. GONG AT BEDSIDE TO EVALUATE PT, PT PLACED ON 2 MD HOLD FOR SAFETY. PT CURRENLTY UP IN THE CHAIR, MAKING FREQUENT ATTEMPTS TO LEAVE. PT ABLE TO VOID YELLOW URINE. TOLERATING PO INTAKE. NO BM THIS SHIFT. PIV TO LFA, SALINE LOCKED. HOME HEALTH OCCUPATIONAL THERAPIST IN PLACE, SR/ST HR 80'S-100'S. SBP 150'S. PT ON RA WITH SPO2 >95% WITH SPOT CHECKS. DENIES SOB. DENIES PAIN. CALL LIGHT IN REACH.
--- NOTE | 2024-01-16 07:56 | NUR ---
ASSUMED CARE REPORT FROM OUMAR AGUIRRE AT 0700. PT SITTING IN CHAIR c SO AT BEDSIDE. PT FLAT, IRRITABLE. STATES HE IS UPSET c THINGS IN HIS "PERSONAL LIFE" AND "THE CARE" HE IS RECEIVING. PT RELUCTANT TO ELABORATE. ORIENTED TO SELF, KNOWS YEAR AND BDAY. ALSO KNOWS FAMILY. STATES WE ARE IN "MY OFFICE." ACKNOWLEDGES EVENTS DURING HOSPITALIZATION. AGREEABLE TO STAY FOR TREATMENT AT THIS TIME. PT CURRENTLY ON 2 MD HOLD. FOLLOWS SIMPLE COMMANDS. COOPERATIVE c CARE. DENIES HALLUCINATIONS. LUNGS CLEAR. SR, RATE 80-90'S. BP STABLE. INDEPENDENT IN ROOM. AMB TO TOLIET IN ROOM. REFUSING BREAKFAST. PIV X 1. WILL CONTINUE PLAN OF CARE.
[2024-01-16] MEDS ORDERED: Thiamine HCl 500 MG in NS 100 ML IV SCH (08:00)
[2024-01-16] MEDS ORDERED: HyDROXyzine HCl 25 MG Tab PO PRN (15:20)
[2024-01-16] MEDS ORDERED: TraZODone HCl 50 MG Tab PO PRN (15:20)
[2024-01-16] MEDS ORDERED: Levothyroxine Sodium 0.112 MG Tab PO SCH (16:00)
--- NOTE | 2024-01-16 16:34 | NUR ---
SHIFT SUMMARY/TRANSFER TO PCU PT TOOK TWO NAPS THIS SHIFT, APPROX 2.5 HOURS OF SLEEP. MENTATION AND IRRITABILITY IMPROVED. PT ALERT TO YEAR, PLACE, SELF AND FAMILY. DOES GET IRRITABLE c REPETITIVE QUESTIONING. FOLLOWS COMMANDS. COOPERATIVE c CARE. AGREEABLE TO STAY FOR TREATMENT. 2MD HOLD DROPPED THIS AM. TIANA AT BEDSIDE MOST OF SHIFT. HELPFUL c CARE. LUNGS CLEAR. TELE D/C'D THIS SHIFT. VSS. REPORT TO MAYO AGUIRRE. PT TRANSFERRED TO PCU 8. ALL BELONGINGS SENT c PT.
--- NOTE | 2024-01-16 17:05 | NUR ---
REPORT RECIEVED FROM YENNY AGUIRRE AT 1617. PT ARRIVED TO PCU AT ROUGHLY 1630 VIA WHEELCHAIR AND ON RA. PT A/OX3-4 UPON ARRIVAL TO UNIT. PT ABLE TO TRANSFER FROM WHEELCHAIR TO RECLINER ON HIS OWN, TOLERATED WELL. PT ORIENTED TO ROOM AND CALL LIGHT. PT PRESENT AT TIME OF ARRIVAL. PT VERY PLEASANT AND COOPERATIVE. PT DID NOT RECALL BEING IN PCU PREVIOUSLY DURING THE WEEK WHEN ASKED.
[2024-01-16] MEDS ORDERED: Thiamine HCl 100 MG Tab PO SCH (17:50)
--- NOTE | 2024-01-16 17:58 | NUR ---
Pt.is awake and sitting upin a chair. Spouse is in room at bedside. Re-establish rapport with both Pt. and spouse. Consider matters of the Pts. recovery, as well as concerns they both have. Listen with empathy and a calming presence. Pt. displayed evidence of clear thinking and a pleasant dispostion while this financial aid counselor was present. [facility] counselor. Both Pt. and spouse verbalized gratitude for the spiritual care visit.
[2024-01-16] MEDS ORDERED: Pregabalin 50 MG Capsule PO SCH (21:00)
--- NOTE | 2024-01-17 06:03 | NUR ---
191 Assumed care of pt, bedside report completed. Shift plan of care reviewed with pt and , all questions answered. Sitter at bedside throughout the shift, though pt is near baseline neuro status. Pt alert and oriented X3-4, off on the day by a few days, appears to correspond to the days he had altered mental status both at home and here. Able to demonstrate he can call appropriately and follow directions. Bed/chair alarm in place for safety as well. Up in room with SBA, boris well. No telemetry per order and VSS. Please see full assessment for additional details. No further complaints or concerns at this time, will continue to monitor.
[2024-01-17 07:29] VITALS: BP 150/94
[2024-01-17] MEDS ORDERED: buprenorphine HCL 2 MG TAB.SUBL SL SCH (09:00)
[2024-01-17] MEDS ORDERED: DULoxetine HCL 30 MG Cap DR PO SCH (09:00)
[2024-01-17] MEDS ORDERED: Lisinopril 20 MG Tab PO SCH (09:00)
--- NOTE | 2024-01-17 13:02 | NUR ---
DISCHARGE UPDATE DISCHARGE PACKET GONE OVER WITH PT AND PT BROTHER AT 1230. PT DISCHARGED AT 1250 VIA WHEELCHAIR AND ON RA. PT ABLE TO TRANSFER SELF TO AND FROM WHEELCHAIR ON HIS OWN, TOLERATED WELL. DISCHARGE PACKET IN BAG ALONG WITH PERSONAL BELONGINGS AND WITH PT BROTHER AT TIME OF DISCHARGE.
[2024-01-18] MEDS ORDERED: Thiamine HCl 250 MG in NS 100 ML IV SCH (09:00)
== END 2024-01-17 12:50 | disposition home or self-care (01) | DRG 917 ==
LOC: ER 08:48 → PCU 08:49 → ICUE 01-13 15:42 → PCU 01-16 16:59
PROVIDERS: Emergency Medicine; Family Medicine; Internal Medicine; Student in an Organized Health Care Education/Training Program; ADMIT Family Medicine
PROC: 5A09357 Assistance with Respiratory Ventilation, Less than 24 Consecutive Hours, Continuous Positive Airway Pressure (ICD-10-PCS; principal; 2024-01-13)
DX: T40.601A Poisoning by unspecified narcotics, accidental (unintentional), initial encounter (principal); G92.8 Other toxic encephalopathy; J96.01 Acute respiratory failure with hypoxia; J96.02 Acute respiratory failure with hypercapnia; N17.9 Acute kidney failure, unspecified; E87.0 Hyperosmolality and hypernatremia; E87.1 Hypo-osmolality and hyponatremia; D64.9 Anemia, unspecified; F17.210 Nicotine dependence, cigarettes, uncomplicated; G47.33 Obstructive sleep apnea (adult) (pediatric); F32.A Depression, unspecified; I10 Essential (primary) hypertension; Z87.442 Personal history of urinary calculi; Z98.890 Other specified postprocedural states; Z98.1 Arthrodesis status; Z96.652 Presence of left artificial knee joint; Z96.641 Presence of right artificial hip joint; Z79.899 Other long term (current) drug therapy; Z79.890 Hormone replacement therapy
CPT/HCPCS: 36415; 51700; 51701; 51702; 51798; 70450; 73080; 80048; 80053; 80069; 81003; 82728; 82803; 82947; 83540; 83550; 83880; 84439; 84443; 84481; 85025; 85045; 93005; 93010; 94660; 94760; 94762; 96361; 96374; 96375; 99285-25; A9270; G0378; J1630; J1650; J2060; J2310; J2405; J3411; J7030; J7042; J7050; J7120; J7121

== ENCOUNTER 2024-01-28 05:45 | Emergency (ER) | payer OTHER ==
[~2024-01-28] VITALS: Ht 167.6 cm; Wt 90.7 kg
[~2024-01-28 05:45] MED LIST changes: +BUPRENORPHINE HC2 MG SL
[2024-01-28] MEDS ORDERED: CHLO25B PO (06:06)
[2024-01-28] MEDS ORDERED: Ipratropium/Albuterol SulF 2.5-0.5MG/3 ML Amp INH ONE (07:20)
[2024-01-28 08:03] LABS: BASOPHILS PERCENT AUTO 1 % (0-2); EOSINOPHILS ABSOLUTE AUTO 0.34 K/mm3 (0.00-0.68); EOSINOPHILS PERCENT AUTO 5 % (0-6); Hematocrit 39.1 % (37.0-53.0); Hemoglobin 12.7 g/dL (13.5-17.5); IMMATURE GRAN ABSOLUTE AUTO 0.01 K/mm3 (0.00-0.10); IMMATURE GRAN PERCENT AUTO 0 % (0-1); LYMPHOCYTES ABSOLUTE AUTO 0.98 K/mm3 (0.84-5.20); LYMPHOCYTES PERCENT AUTO 13 % (21-46); MONOCYTES ABSOLUTE AUTO 0.65 K/mm3 (0.16-1.47); MONOCYTES PERCENT AUTO 9 % (4-13); Mean Corpuscular HGB 28.1 pg (26.0-34.0); Mean Corpuscular HGB Conc 32.5 g/dL (31.5-36.5); Mean Corpuscular Volume 87 fL (80-100); Mean Platelet Volume 8.4 fL (9.1-12.4); NEUTROPHILS ABSOLUTE AUTO 5.39 K/mm3 (1.96-9.15); NEUTROPHILS PERCENT AUTO 72 % (41-73); Platelet Count 331 K/mm3 (150-400); RDW Coefficient Variation 14.1 % (11.7-14.2); RDW Standard Deviation 44.3 fL (35.1-46.3); Red Blood Cell Count 4.52 M/mm3 (4.30-5.90); White Blood Cell Count 7.47 K/mm3 (4.00-11.30)
[2024-01-28 08:25] LABS: Albumin, Blood 3.3 g/dL (3.4-5.0); Albumin/Globulin Ratio 0.9 (0.8-1.8); Bilirubin, Total 0.3 mg/dL (0.1-1.0); Bun/Creatinine Ratio 24.8 (12.0-20.0); Calcium, Blood 10.2 mg/dL (8.5-10.1); Creatinine, Blood 1.17 mg/dL (0.60-1.20); Globulin, Blood 3.8 g/dL (2.2-4.0); Magnesium, Blood 2.4 mg/dL (1.6-2.4); Potassium, Blood 4.2 mmol/L (3.5-5.5); Total Protein, Blood 7.1 g/dL (6.4-8.2)
[2024-01-28] MEDS ORDERED: PredniSONE 20 MG Tab PO ONE (09:35)
[2024-01-28] MEDS ORDERED: Albuterol 2.5 MG/3 ML VIAL INH SCH (09:35)
[2024-01-28] MEDS ORDERED: PRED20 PO ×2 (10:36→10:41)
[2024-01-28] MEDS ORDERED: ALBU90OI INH (10:36)
[2024-01-28 11:15] VITALS: BP 124/78
== END 2024-01-28 11:15 | disposition home or self-care (01) ==
LOC: ER 05:45
PROVIDERS: Student in an Organized Health Care Education/Training Program
DX: J20.9 Acute bronchitis, unspecified (principal); I10 Essential (primary) hypertension; Z79.899 Other long term (current) drug therapy; Z79.890 Hormone replacement therapy
CPT/HCPCS: 71045; 80053; 83735; 83880; 84145; 85025; 93005; 93010; 94640; 94645; 94664; 99285-25; J7512

== ENCOUNTER → 2024-02-22 | Outpatient (CLI) | payer OTHER ==
[~2024-02-22] MED LIST changes: +ALBU90OI INH; +ALPR.5 PO; +CHLO25B PO; +FLUT1DIS5 INH; +IPRAT-ALBUT 0.5-3 ML; +LORA10ER PO; +PRED20 PO
== END | disposition home or self-care (01) ==
LOC: LAB 08:30 → LAB SHORT 08:30
DX: R05.9 Cough, unspecified (principal)
CPT/HCPCS: 87070; 87205

== ENCOUNTER 2024-03-07 19:04 | Emergency (ER) | payer OTHER ==
[~2024-03-07] VITALS: Ht 167.6 cm; Wt 90.7 kg
[~2024-03-07 19:04] MED LIST changes: -IPRAT-ALBUT 0.5-3 ML; -LORA10ER PO
[2024-03-07] MEDS ORDERED: Ipratropium/Albuterol SulF 2.5-0.5MG/3 ML Amp INH PRN (19:25)
[2024-03-07 19:52] LABS: BASOPHILS ABSOLUTE AUTO 0.09 K/mm3 (0.00-0.23); BASOPHILS PERCENT AUTO 2 % (0-2); EOSINOPHILS ABSOLUTE AUTO 0.33 K/mm3 (0.00-0.68); EOSINOPHILS PERCENT AUTO 7 % (0-6); Hematocrit 35.8 % (37.0-53.0); Hemoglobin 11.5 g/dL (13.5-17.5); IMMATURE GRAN ABSOLUTE AUTO 0.01 K/mm3 (0.00-0.10); IMMATURE GRAN PERCENT AUTO 0 % (0-1); LYMPHOCYTES ABSOLUTE AUTO 1.06 K/mm3 (0.84-5.20); LYMPHOCYTES PERCENT AUTO 23 % (21-46); MONOCYTES ABSOLUTE AUTO 0.41 K/mm3 (0.16-1.47); MONOCYTES PERCENT AUTO 9 % (4-13); Mean Corpuscular HGB 27.2 pg (26.0-34.0); Mean Corpuscular HGB Conc 32.1 g/dL (31.5-36.5); Mean Corpuscular Volume 85 fL (80-100); Mean Platelet Volume 8.4 fL (9.1-12.4); NEUTROPHILS ABSOLUTE AUTO 2.82 K/mm3 (1.96-9.15); NEUTROPHILS PERCENT AUTO 60 % (41-73); Platelet Count 292 K/mm3 (150-400); RDW Coefficient Variation 15.3 % (11.7-14.2); RDW Standard Deviation 47.1 fL (35.1-46.3); Red Blood Cell Count 4.23 M/mm3 (4.30-5.90); White Blood Cell Count 4.72 K/mm3 (4.00-11.30)
[2024-03-07 20:10] LABS: Albumin/Globulin Ratio 0.8 (0.8-1.8); Bilirubin, Total 0.2 mg/dL (0.1-1.0); Bun/Creatinine Ratio 16.7 (12.0-20.0); Creatinine, Blood 1.14 mg/dL (0.60-1.20); Globulin, Blood 3.7 g/dL (2.2-4.0); Potassium, Blood 4.3 mmol/L (3.5-5.5); Total Protein, Blood 6.7 g/dL (6.4-8.2)
[2024-03-07] MEDS ORDERED: IPRAT-ALBUT 0.5-3 ML (20:11)
[2024-03-07] MEDS ORDERED: Ipratropium/Albuterol SulF 2.5-0.5MG/3 ML Amp INH ONE (22:20)
[2024-03-07] MEDS ORDERED: MethylPREDNISolone Sod Succ 125 MG Vial IV ONE (22:20)
[2024-03-08] MEDS ORDERED: LORA10ER PO (00:40)
[2024-03-08] MEDS ORDERED: PRED20 PO (00:40)
[2024-03-08 00:59] VITALS: BP 138/76
== END 2024-03-08 01:02 | disposition home or self-care (01) ==
LOC: ER 19:04
PROVIDERS: Physician Assistant
DX: J44.1 Chronic obstructive pulmonary disease with (acute) exacerbation (principal); Z55.0 Illiteracy and low-level literacy; Z79.899 Other long term (current) drug therapy; I10 Essential (primary) hypertension
CPT/HCPCS: 71046; 71260; 80053; 83880; 84484; 85025; 93005; 93010; 94640; 94664; 96374; 99285-25; J2919; Q9967

== ENCOUNTER 2024-03-24 13:51 | Emergency (ER) | payer OTHER ==
[~2024-03-24] VITALS: Ht 167.6 cm; Wt 90.7 kg
[~2024-03-24 13:51] MED LIST changes: +IPRAT-ALBUT 0.5-3 ML; +LORA10ER PO
[2024-03-24] MEDS ORDERED: NS 1,000 ML IV ONE (14:20)
[2024-03-24 14:44] LABS: BASOPHILS ABSOLUTE AUTO 0.04 K/mm3 (0.00-0.23); BASOPHILS PERCENT AUTO 0 % (0-2); EOSINOPHILS ABSOLUTE AUTO 0.38 K/mm3 (0.00-0.68); EOSINOPHILS PERCENT AUTO 4 % (0-6); Hematocrit 38.4 % (37.0-53.0); Hemoglobin 12.4 g/dL (13.5-17.5); IMMATURE GRAN ABSOLUTE AUTO 0.07 K/mm3 (0.00-0.10); IMMATURE GRAN PERCENT AUTO 1 % (0-1); LYMPHOCYTES ABSOLUTE AUTO 1.09 K/mm3 (0.84-5.20); LYMPHOCYTES PERCENT AUTO 10 % (21-46); MONOCYTES ABSOLUTE AUTO 1.15 K/mm3 (0.16-1.47); MONOCYTES PERCENT AUTO 11 % (4-13); Mean Corpuscular HGB 26.7 pg (26.0-34.0); Mean Corpuscular HGB Conc 32.3 g/dL (31.5-36.5); Mean Corpuscular Volume 83 fL (80-100); Mean Platelet Volume 8.6 fL (9.1-12.4); NEUTROPHILS ABSOLUTE AUTO 8.19 K/mm3 (1.96-9.15); NEUTROPHILS PERCENT AUTO 75 % (41-73); Platelet Count 182 K/mm3 (150-400); RDW Coefficient Variation 16.3 % (11.7-14.2); RDW Standard Deviation 49.2 fL (35.1-46.3); Red Blood Cell Count 4.64 M/mm3 (4.30-5.90); White Blood Cell Count 10.92 K/mm3 (4.00-11.30)
[2024-03-24 15:16] LABS: Albumin, Blood 3.1 g/dL (3.4-5.0); Bilirubin, Total 0.5 mg/dL (0.1-1.0); Bun/Creatinine Ratio 21.5 (12.0-20.0); Calcium, Blood 9.5 mg/dL (8.5-10.1); Creatinine, Blood 1.72 mg/dL (0.60-1.20); Potassium, Blood 4.5 mmol/L (3.5-5.5); Total Protein, Blood 6.1 g/dL (6.4-8.2)
[2024-03-24 15:22] LABS: Influenza A, PCR NEGATIVE (NEGATIVE); Influenza B, PCR NEGATIVE (NEGATIVE); Resp Syncytial Virus, PCR NEGATIVE (NEGATIVE); SARS-Cov-2 (COVID-19) PCR, MMC NEGATIVE (NEGATIVE)
[2024-03-24] MEDS ORDERED: NS 1,000 ML IV SCH (16:25)
[2024-03-24 19:15] VITALS: BP 114/74
== END 2024-03-24 19:34 | disposition home or self-care (01) ==
LOC: ER 13:51
PROVIDERS: Emergency Medicine
DX: I95.9 Hypotension, unspecified (principal); E86.0 Dehydration; I10 Essential (primary) hypertension; E03.9 Hypothyroidism, unspecified; Z87.442 Personal history of urinary calculi; Z79.890 Hormone replacement therapy; Z79.52 Long term (current) use of systemic steroids; Z79.899 Other long term (current) drug therapy
CPT/HCPCS: 0241U; 70450; 71045; 80053; 83605; 83880; 84484; 85025; 93005; 93010; 96360; 96361; 99285-25; J7030

== ENCOUNTER 2024-04-26 17:05 | Emergency (ER) | payer OTHER ==
[~2024-04-26] VITALS: Ht 170.2 cm; Wt 90.7 kg
[2024-04-26 17:16] VITALS: BP 172/110
[2024-04-26 17:59] LABS: BASOPHILS ABSOLUTE AUTO 0.08 K/mm3 (0.00-0.23); BASOPHILS PERCENT AUTO 1 % (0-2); EOSINOPHILS ABSOLUTE AUTO 0.14 K/mm3 (0.00-0.68); EOSINOPHILS PERCENT AUTO 2 % (0-6); Hematocrit 39.5 % (37.0-53.0); Hemoglobin 12.9 g/dL (13.5-17.5); IMMATURE GRAN ABSOLUTE AUTO 0.02 K/mm3 (0.00-0.10); IMMATURE GRAN PERCENT AUTO 0 % (0-1); LYMPHOCYTES PERCENT AUTO 11 % (21-46); MONOCYTES ABSOLUTE AUTO 0.59 K/mm3 (0.16-1.47); MONOCYTES PERCENT AUTO 8 % (4-13); Mean Corpuscular HGB 25.7 pg (26.0-34.0); Mean Corpuscular HGB Conc 32.7 g/dL (31.5-36.5); Mean Corpuscular Volume 79 fL (80-100); Mean Platelet Volume 7.9 fL (9.1-12.4); NEUTROPHILS ABSOLUTE AUTO 5.92 K/mm3 (1.96-9.15); NEUTROPHILS PERCENT AUTO 78 % (41-73); Platelet Count 300 K/mm3 (150-400); RDW Coefficient Variation 14.6 % (11.7-14.2); Red Blood Cell Count 5.02 M/mm3 (4.30-5.90); White Blood Cell Count 7.55 K/mm3 (4.00-11.30)
[2024-04-26 18:31] LABS: Albumin, Blood 3.5 g/dL (3.4-5.0); Bilirubin, Total 0.6 mg/dL (0.1-1.0); Bun/Creatinine Ratio 17.6 (12.0-20.0); Calcium, Blood 10.5 mg/dL (8.5-10.1); Creatinine, Blood 1.08 mg/dL (0.60-1.20); Globulin, Blood 3.6 g/dL (2.2-4.0); Potassium, Blood 4.1 mmol/L (3.5-5.5); Total Protein, Blood 7.1 g/dL (6.4-8.2)
[2024-04-26] MEDS ORDERED: MethylPREDNISolone Sod Succ 125 MG Vial IV ONE ×2 (19:10→21:20)
[2024-04-26] MEDS ORDERED: DELTASONE20 MG PO (21:23)
== END 2024-04-27 06:47 | disposition home or self-care (01) ==
LOC: ER 17:05
PROVIDERS: Physician Assistant
DX: J02.9 Acute pharyngitis, unspecified (principal); R59.0 Localized enlarged lymph nodes; I10 Essential (primary) hypertension; E78.5 Hyperlipidemia, unspecified; E03.9 Hypothyroidism, unspecified; Z79.51 Long term (current) use of inhaled steroids; Z79.899 Other long term (current) drug therapy
CPT/HCPCS: 70491; 80053; 85025; 93005; 93010; 96374-59; 99284-25; J2919; Q9967

== ENCOUNTER 2024-07-15 06:45 | Emergency (ER) | payer OTHER ==
[~2024-07-15] VITALS: Ht 167.6 cm; Wt 83.9 kg
[~2024-07-15 06:45] MED LIST changes: +DELTASONE20 MG PO
[2024-07-15] MEDS ORDERED: Ipratropium/Albuterol SulF 2.5-0.5MG/3 ML Amp INH ONE (08:35)
[2024-07-15] MEDS ORDERED: MethylPREDNISolone Sod Succ 125 MG Vial IV ONE (08:35)
[2024-07-15] MEDS ORDERED: Metoclopramide HCl 5MG / ML 2ML Vial IV ONE (08:35)
[2024-07-15] MEDS ORDERED: NS 1,000 ML IV SCH (08:40)
[2024-07-15 09:00] LABS: BASOPHILS ABSOLUTE AUTO 0.09 K/mm3 (0.00-0.23); BASOPHILS PERCENT AUTO 1 % (0-2); EOSINOPHILS ABSOLUTE AUTO 0.13 K/mm3 (0.00-0.68); EOSINOPHILS PERCENT AUTO 2 % (0-6); Hematocrit 42.1 % (37.0-53.0); Hemoglobin 13.5 g/dL (13.5-17.5); IMMATURE GRAN ABSOLUTE AUTO 0.03 K/mm3 (0.00-0.10); IMMATURE GRAN PERCENT AUTO 0 % (0-1); LYMPHOCYTES ABSOLUTE AUTO 0.69 K/mm3 (0.84-5.20); LYMPHOCYTES PERCENT AUTO 10 % (21-46); MONOCYTES ABSOLUTE AUTO 0.61 K/mm3 (0.16-1.47); MONOCYTES PERCENT AUTO 9 % (4-13); Mean Corpuscular HGB 25.7 pg (26.0-34.0); Mean Corpuscular HGB Conc 32.1 g/dL (31.5-36.5); Mean Corpuscular Volume 80 fL (80-100); NEUTROPHILS ABSOLUTE AUTO 5.33 K/mm3 (1.96-9.15); NEUTROPHILS PERCENT AUTO 78 % (41-73); Platelet Count 330 K/mm3 (150-400); RDW Coefficient Variation 14.9 % (11.7-14.2); RDW Standard Deviation 43.8 fL (35.1-46.3); Red Blood Cell Count 5.25 M/mm3 (4.30-5.90); White Blood Cell Count 6.88 K/mm3 (4.00-11.30)
[2024-07-15 09:17] LABS: Albumin, Blood 2.7 g/dL (3.4-5.0); Albumin/Globulin Ratio 0.7 (0.8-1.8); Bilirubin, Total 0.3 mg/dL (0.1-1.0); Bun/Creatinine Ratio 11.8 (12.0-20.0); Calcium, Blood 10.2 mg/dL (8.5-10.1); Creatinine, Blood 0.85 mg/dL (0.60-1.20); Potassium, Blood 3.2 mmol/L (3.5-5.5); Total Protein, Blood 6.7 g/dL (6.4-8.2)
[2024-07-15] MEDS ORDERED: LORazepam 1 MG Tab PO ONE (09:25)
[2024-07-15 09:55] LABS: Source, Urine Clean Catch
[2024-07-15 09:57] LABS: Appearance, Urine Hazy (Clear); Bilirubin, Urine Neg (Neg); Blood, Urine Neg (Neg); Color, Urine Yellow (P-Yellow); Glucose Qualitative, Urine Neg (Neg); Ketones, Urine Neg (Neg); Leukocyte Esterase, Urine Neg (Neg); Nitrite, Urine Neg (Neg); Protein, Urine Neg (Neg); Urobilinogen, Urine NORM (Normal)
[2024-07-15 10:03] LABS: Amorphous Mod (0-Heavy); Bacteria Rare /hpf; Red Blood Cells, Urine 0-2 /hpf (0-2); Squamous Epithelial Cells Rare /hpf (Few); White Blood Cells, Urine 0-2 /hpf (0-5)
[2024-07-15] MEDS ORDERED: ONDA4ODT MM (11:59)
[2024-07-15] MEDS ORDERED: OMEP20ER PO (11:59)
[2024-07-15 12:46] VITALS: BP 122/77
== END 2024-07-15 12:40 | disposition home or self-care (01) ==
LOC: ER 06:45
PROVIDERS: Student in an Organized Health Care Education/Training Program
DX: K22.4 Dyskinesia of esophagus (principal); R11.0 Nausea; I10 Essential (primary) hypertension; E78.5 Hyperlipidemia, unspecified; Z87.891 Personal history of nicotine dependence
CPT/HCPCS: 74177; 80053; 81001; 83690; 85025; 94640; 94664; 96374-59; 96375; 99285-25; A9270; J2765; J2919; J7030; Q9967

== ENCOUNTER 2024-07-26 10:19 | Inpatient (IN) | payer OTHER ==
[~2024-07-26] VITALS: Ht 167.6 cm; Wt 78.7 kg
[~2024-07-26 10:19] MED LIST changes: +OMEP20ER PO
[2024-07-26 10:49] LABS: BASOPHILS ABSOLUTE AUTO 0.07 K/mm3 (0.00-0.23); BASOPHILS PERCENT AUTO 1 % (0-2); EOSINOPHILS PERCENT AUTO 4 % (0-6); Hemoglobin 14.4 g/dL (13.5-17.5); IMMATURE GRAN ABSOLUTE AUTO 0.03 K/mm3 (0.00-0.10); IMMATURE GRAN PERCENT AUTO 0 % (0-1); LYMPHOCYTES ABSOLUTE AUTO 0.62 K/mm3 (0.84-5.20); LYMPHOCYTES PERCENT AUTO 7 % (21-46); MONOCYTES ABSOLUTE AUTO 0.85 K/mm3 (0.16-1.47); MONOCYTES PERCENT AUTO 10 % (4-13); Mean Corpuscular HGB 25.4 pg (26.0-34.0); Mean Corpuscular Volume 80 fL (80-100); Mean Platelet Volume 7.9 fL (9.1-12.4); NEUTROPHILS ABSOLUTE AUTO 6.56 K/mm3 (1.96-9.15); NEUTROPHILS PERCENT AUTO 78 % (41-73); Platelet Count 369 K/mm3 (150-400); RDW Coefficient Variation 15.2 % (11.7-14.2); Red Blood Cell Count 5.66 M/mm3 (4.30-5.90); White Blood Cell Count 8.43 K/mm3 (4.00-11.30)
[2024-07-26 11:10] LABS: Albumin, Blood 2.9 g/dL (3.4-5.0); Albumin/Globulin Ratio 0.7 (0.8-1.8); Bilirubin, Total 0.5 mg/dL (0.1-1.0); Bun/Creatinine Ratio 20.3 (12.0-20.0); Calcium, Blood 10.7 mg/dL (8.5-10.1); Creatinine, Blood 0.79 mg/dL (0.60-1.20); Globulin, Blood 4.1 g/dL (2.2-4.0); Potassium, Blood 2.8 mmol/L (3.5-5.5)
[2024-07-26] MEDS ORDERED: LORazepam 1 MG Tab PO ONE (11:40)
[2024-07-26] MEDS ORDERED: Ondansetron HCl 2 MG / ML 2ML Vial IV ONE (11:40)
[2024-07-26] MEDS ORDERED: Ipratropium/Albuterol SulF 2.5-0.5MG/3 ML Amp INH ONE (11:40)
[2024-07-26] MEDS ORDERED: NS 1,000 ML IV SCH ×2 (11:40→14:00)
[2024-07-26] MEDS ORDERED: Potassium Chl 20MEQ/Water100ML 100 ML IV SCH (12:15)
[2024-07-26] MEDS ORDERED: Potassium Chloride 40 MEQ in NS 250 ML IV ONE (12:20)
[2024-07-26] MEDS ORDERED: Magnesium Hydroxide Conc 10 ML UDC PO PRN (13:55)
[2024-07-26] MEDS ORDERED: Bisacodyl 10 MG Supp PR PRN (13:55)
[2024-07-26] MEDS ORDERED: Ondansetron HCl 2 MG / ML 2ML Vial IV PRN (13:55)
[2024-07-26] MEDS ORDERED: FLU VACC TS2024-25(6MOS UP)/PF 45 MCG/0.5 ML SYRINGE IM ONE (13:55)
[2024-07-26] MEDS ORDERED: Proventil HFA 90 mcg INH (14:13)
[2024-07-26] MEDS ORDERED: ATORVASTATIN CA80 M1 PO (14:14)
[2024-07-26] MEDS ORDERED: SUBOXONE SL (14:15)
[2024-07-26] MEDS ORDERED: TraZODone HCl 100 MG Tab PO PRN (14:15)
[2024-07-26] MEDS ORDERED: Metoprolol Tartrate 1 MG/ML 5 ML VIAL IV PRN (14:15)
[2024-07-26] MEDS ORDERED: bupropion HCl XL 300 PO (14:16)
[2024-07-26] MEDS ORDERED: CYMBALTA60 M1 PO (14:17)
[2024-07-26] MEDS ORDERED: HYDPAM50 PO (14:18)
[2024-07-26] MEDS ORDERED: Iprat-Albut 0.5-3(2. INH (14:19)
[2024-07-26] MEDS ORDERED: Synthroid/Levothroid PO (14:20)
[2024-07-26] MEDS ORDERED: Ipratropium/Albuterol SulF 2.5-0.5MG/3 ML Amp INH SCH (14:20)
[2024-07-26] MEDS ORDERED: Ampicillin Sod/Sulbactam Sod 3 GM in NS 100 ML IV ONE (14:20)
[2024-07-26] MEDS ORDERED: ZESTRIL40 M1 PO (14:21)
[2024-07-26] MEDS ORDERED: OMEP20ER PO (14:22)
[2024-07-26] MEDS ORDERED: POTA20LUD PO (14:23)
[2024-07-26] MEDS ORDERED: PROPRANOLOL HCL80 MG PO (14:24)
[2024-07-26] MEDS ORDERED: TRAZ100 PO (14:25)
[2024-07-26] MEDS ORDERED: Buprenorphine HCL/Naloxone HCL 8MG-2MG Tab SL SCH (14:29)
[2024-07-26] MEDS ORDERED: Magnesium Sulf 2 GM/Water 50ML 50 ML IV STA (14:45)
[2024-07-26] MEDS ORDERED: Furosemide 10 MG/ML 4ML Vial IV SCH (15:00)
[2024-07-26] MEDS ORDERED: LORA.5 PO (16:29)
[2024-07-26] MEDS ORDERED: FURO20 PO (16:35)
[2024-07-26] MEDS ORDERED: BUPROPION XL150 M1 PO (16:38)
[2024-07-26] MEDS ORDERED: MONDOXYNE NL100 MG PO (16:38)
[2024-07-26] MEDS ORDERED: Potassium Chloride 20 MEQ in NS 90 ML IV ONE ×2 (17:00→19:30)
[2024-07-26 17:53] LABS: Base Excess Venous 17.3 mmol/L; Bicarbonate Venous 36.5 mmol/L (24.0-30.0); PCO2 Venous 74.2 mmHg (38-42); pH Blood Venous 7.37 (7.34-7.37)
[2024-07-26 18:04] LABS: Bun/Creatinine Ratio 16.7 (12.0-20.0); Calcium, Blood 9.7 mg/dL (8.5-10.1); Creatinine, Blood 0.9 mg/dL (0.60-1.20); Potassium, Blood 3.3 mmol/L (3.5-5.5)
[2024-07-26] MEDS ORDERED: LORazepam 1 MG Tab PO PRN (19:30)
[2024-07-26] MEDS ORDERED: HydrOXYzine Pamoate 50 MG Cap PO PRN (21:00)
[2024-07-26] MEDS ORDERED: Lactobacil 2-S.Thermo-Bifido 1 1 Cap PO SCH (21:00)
[2024-07-26] MEDS ORDERED: CHLO25B PO (21:32)
[2024-07-26] MEDS ORDERED: POTCHL20ER PO (21:35)
[2024-07-26 23:19] VITALS: BP 148/94
[2024-07-27] VITALS (13 sets, daily range): BP systolic 105–146; BP diastolic 80–105
[2024-07-27] MEDS ORDERED: Ampicillin Sod/Sulbactam Sod 3 GM in NS 100 ML IV SCH
--- NOTE | 2024-07-27 05:16 | NUR ---
ADMIT NOTE FOR 07/26/24 2300 REPORT WAS RECEIVED FROM ER. PT WAS TRANSFERRED VIA GURNEY TO ROOM 362. PT WAS ORIENTED TO ROOM AND STAFF. PT ALERT ORIENTED X 4 ABLE TO VERBALIZE NEEDS REQUIRES SBA TO AMBULATE TO THE BATHROOM. NO C/O PAIN ON ADMIT SKIN CHECK WAS DONE WITH NO SKIN CONCERNS HE DOES HAVE 3+ EDEMA TO BLE. C/O SOB ON EXERTION REMAINS ON 4L OF O2 VIA NC. RT GAVE HIM A HHN TX. LUNG SOUNDS DIMINISHED. HE REMAINS NPO WITH A ORDER FOR A ST EVAL. HIS ABDOMEN IS DISTENDED HE STATED THAT HE HASNT HAD A BM X [address] SCAN SHOWED NODULES ON HIS LOWER LUNGS. HE IS FLUSHED AND HIS FINGERS ARE A LITTLE CYANOTIC. HE HAS SEVERE ANXIETY AND HAS BEEN GIVEN TRAZADONE, HYDROXYZINE AND ATIVAN WITH GOOD RELIEF. HE AMBULATES WITH SBA TO THE BATHROOM. REMAINS ON NS AT 75. HE REMAINS ON UNASYN Q6HR RESTING IN BED AT THIS TIME WITH CALL LIGHT IN REACH
--- NOTE | 2024-07-27 05:27 | NUR ---
SHIFT SUMMARY PT ALERT ORIENTED X 4 BUT FRANCY WEAK AND SPEAKS VERY SOFTLY. GETS UP WITH 1 PERSON SBA WITH HIS CANE AND AMBULATES TO THE BATHROOM. HES VERY ANXIOUS AND WAS GIVEN ATIVAN, HYDROXYZINE AND TRAZADONE WITH GOOD RELIEF. HE C/O SOB WITH EXERTION C/O NAUSEA MEDICATED WITH ZOFRAN WITH GOOD RELIEF HIS SKIN IS VERY PALE HE C/O SOB CALLED RT AND THEY BROUGHT HIM A HHN TX WHICH HELPED. HE REMAINS ON TELEMETRY AT SINUS TACH AT 115. REMAINS NPO PENDING A ST EVAL R/T ESOPHAGEAL DYSMOBILITY. REMAINS ON 4L VIA NC SATTING AT 94%. HE HAS A ORDER FOR PALLIATIVE CARE CALLED THEM TO INFORM THEM OF THE ORDER. REMAINS ON NS AT 75. RESTING IN BED AT THIS TIME WITH LOLY ANDREW IN REACH
[2024-07-27] MEDS ORDERED: Levothyroxine Sodium 0.137 MG Tab PO SCH (06:00)
[2024-07-27] MEDS ORDERED: Pantoprazole Sodium 40 MG Injection IV SCH (06:00)
[2024-07-27] MEDS ORDERED: Metoprolol Tartrate 1 MG/ML 5 ML VIAL IV ONE ×3 (06:30→07:15)
[2024-07-27] MEDS ORDERED: Nitroglycerin 0.4 MG SUBL ONE (06:34)
[2024-07-27] MEDS ORDERED: Aspirin 81 MG Chew PO ONE (06:35)
[2024-07-27] MEDS ORDERED: Nitroglycerin 0.4 MG SUBL SL PRN (06:35)
[2024-07-27 06:45] LABS: Base Excess Venous 14.6 mmol/L; Bicarbonate Venous 35.3 mmol/L (24.0-30.0); PCO2 Venous 56.3 mmHg (38-42); pH Blood Venous 7.45 (7.34-7.37)
[2024-07-27 06:58] LABS: BASOPHILS ABSOLUTE AUTO 0.07 K/mm3 (0.00-0.23); BASOPHILS PERCENT AUTO 1 % (0-2); EOSINOPHILS ABSOLUTE AUTO 0.42 K/mm3 (0.00-0.68); EOSINOPHILS PERCENT AUTO 4 % (0-6); Hematocrit 44.8 % (37.0-53.0); Hemoglobin 14.1 g/dL (13.5-17.5); IMMATURE GRAN ABSOLUTE AUTO 0.03 K/mm3 (0.00-0.10); IMMATURE GRAN PERCENT AUTO 0 % (0-1); LYMPHOCYTES ABSOLUTE AUTO 0.61 K/mm3 (0.84-5.20); LYMPHOCYTES PERCENT AUTO 6 % (21-46); MONOCYTES ABSOLUTE AUTO 1.03 K/mm3 (0.16-1.47); MONOCYTES PERCENT AUTO 10 % (4-13); Mean Corpuscular HGB 25.6 pg (26.0-34.0); Mean Corpuscular HGB Conc 31.5 g/dL (31.5-36.5); Mean Corpuscular Volume 81 fL (80-100); Mean Platelet Volume 7.9 fL (9.1-12.4); NEUTROPHILS ABSOLUTE AUTO 8.72 K/mm3 (1.96-9.15); NEUTROPHILS PERCENT AUTO 80 % (41-73); Platelet Count 370 K/mm3 (150-400); RDW Coefficient Variation 15.3 % (11.7-14.2); RDW Standard Deviation 45.5 fL (35.1-46.3); Red Blood Cell Count 5.51 M/mm3 (4.30-5.90); White Blood Cell Count 10.88 K/mm3 (4.00-11.30)
[2024-07-27] MEDS ORDERED: Furosemide 10 MG/ML 4ML Vial IV SCH (07:05)
[2024-07-27 07:07] LABS: Albumin, Blood 2.8 g/dL (3.4-5.0); Albumin/Globulin Ratio 0.7 (0.8-1.8); Bilirubin, Total 0.5 mg/dL (0.1-1.0); Bun/Creatinine Ratio 15.4 (12.0-20.0); Creatinine, Blood 0.78 mg/dL (0.60-1.20); Globulin, Blood 4.1 g/dL (2.2-4.0); Magnesium, Blood 2.3 mg/dL (1.6-2.4); Potassium, Blood 2.9 mmol/L (3.5-5.5); Total Protein, Blood 6.9 g/dL (6.4-8.2)
[2024-07-27] MEDS ORDERED: Ondansetron HCl 2 MG / ML 2ML Vial IV ONE (07:10)
[2024-07-27] MEDS ORDERED: Potassium Chloride 60 MEQ IV ONE (07:15)
[2024-07-27] MEDS ORDERED: Potassium Chl 20MEQ/Water100ML 100 ML IV SCH (07:25)
--- NOTE | 2024-07-27 07:41 | NUR ---
AT 0620 TELETECH CALLED ME STATING THE PTS HR WAS AT 170. I WENT IN TO ASSESS THE PT AND HE STATED THAT HE WASNT FEELING WELL. HE STATED THAT HE WAS HAVING CHEST PAIN AND FELT VERY FAINT. HE WAS DIAPHORETIC AND FLUSHED. HR SUSTAINED IN THE 150-170'S AND CHEST PAIN CONTINUED. AFTER ASSESSING THE PT AND HR NOT GOING DOWN AND CONTINUING TO BE 150-170 I CALLED CHEY THE CHARGE NURSE IN TO THE ROOM. AFTER WE BOTH ASSESSED THE PT AND CONDITION DIDNT IMPROVE WE CALLED A RAPID RESPONSE. RAPID RESPONSE TEAM AND MD CAME IN TO ASSESS THE PT. WE GAVE 1 DOSE OF NITRO, 2 DOSES OF METOPROLOL 2.5 AND ASPIRIN 324. HE HAD A EKG DONE WHICH SHOWED AFIB WITH RVR. PT WAS THEN TRANSFERRED DOWN TO PCU ROOM 19. I WENT DOWN TO PCU AND GAVE THE ONCOMING NURSE REPORT. I ALSO CALLED HIS TIANA AND INFORMED HER OF PTS CONDITION AND INFORMED HER OF WHERE THE PT WAS TRANSFERRED TO.
[2024-07-27] MEDS ORDERED: Potassium Chloride 20 MEQ in NS 90 ML IV SCH (07:45)
[2024-07-27] MEDS ORDERED: NS 250 ML IV PRN (07:50)
[2024-07-27] MEDS ORDERED: buPROPion HCL 150 MG TAB.SR.12H PO SCH (09:00)
[2024-07-27] MEDS ORDERED: Atorvastatin 10 MG Tab PO SCH (09:00)
[2024-07-27] MEDS ORDERED: DULoxetine HCL 60 MG Capsule DR PO SCH (09:00)
[2024-07-27] MEDS ORDERED: Lisinopril 20 MG Tab PO SCH (09:00)
[2024-07-27] MEDS ORDERED: Enoxaparin 40 MG/0.4 ML SYR SC SCH (09:00)
[2024-07-27] MEDS ORDERED: Apixaban 5 MG Tab PO SCH (09:25)
[2024-07-27] MEDS ORDERED: OMEPRAZOLE20 M1 PO (10:46)
[2024-07-27 10:59] LABS: Adenovirus Not Detected (NOT DETECT); Bordetella pertussis Not Detected (NOT DETECT); Chlamydophila pneumoniae Not Detected (NOT DETECT); Coronavirus 229E Not Detected (NOT DETECT); Coronavirus HKU1 Not Detected (NOT DETECT); Coronavirus NL63 Not Detected (NOT DETECT); Coronavirus OC43 Not Detected (NOT DETECT); Human Metapneumovirus Not Detected (NOT DETECT); Human Rhinovirus/Enterovirus Not Detected (NOT DETECT); Influenza A/2009-H1 Not Detected (NOT DETECT); Influenza A/H1 Not Detected (NOT DETECT); Influenza A/H3 Not Detected (NOT DETECT); Influenza B Not Detected (NOT DETECT); Mycoplasma pneumoniae Not Detected (NOT DETECT); Parainfluenza Virus 1 Not Detected (NOT DETECT); Parainfluenza Virus 2 Not Detected (NOT DETECT); Parainfluenza Virus 3 Not Detected (NOT DETECT); Parainfluenza Virus 4 Not Detected (NOT DETECT); Respiratory Syncytial Virus Not Detected (NOT DETECT); SARS-Cov-2 (COVID-19), BioFire Not Detected (NOT DETECT)
[2024-07-27] MEDS ORDERED: Magnesium Sulf 2 GM/Water 50ML 50 ML IV STA (11:26)
[2024-07-27] MEDS ORDERED: Propranolol HCL 80 MG CAPCR PO SCH (12:00)
[2024-07-27] MEDS ORDERED: CEPACOL THROAT1 EAC1 MM (13:22)
[2024-07-27] MEDS ORDERED: TRELEGY ELLIPT1 EAC1 INH (13:22)
[2024-07-27] MEDS ORDERED: Voltaren100 GM TOP (13:23)
[2024-07-27] MEDS ORDERED: Mometasone/Formoterol MDI 100/5 mcg 13 GM INH SCH (14:30)
[2024-07-27] MEDS ORDERED: DEXTROMETHORPHAN/BENZOCAINE 1 EACH LOZENGE MT PRN (14:30)
[2024-07-27] MEDS ORDERED: Albuterol HFA200 ACT/6.7 GM INH INH PRN (14:30)
[2024-07-27] MEDS ORDERED: Diclofenac Sodium 100 GM TUBE TOP PRN ×2 (14:30→15:45)
[2024-07-27] MEDS ORDERED: Tiotropium Bromide 2.5 MCG/ACT MIST INHAL (10 ACT/4 GM) INH SCH (14:35)
[2024-07-27] MEDS ORDERED: FLUTICASONE UMECLIDINIUM VILANTEROL INH SCH (14:40)
[2024-07-27] MEDS ORDERED: Nicotine 21 MG PATCH TOP SCH (16:00)
[2024-07-27] MEDS ORDERED: LORazepam 0.5 MG Tab PO ONE (16:45)
[2024-07-27] MEDS ORDERED: Lactulose 20 GM/30 ML UDC PO SCH (17:00)
[2024-07-27] MEDS ORDERED: Potassium Chloride 40 MEQ in NS 250 ML IV ONE (18:15)
--- NOTE | 2024-07-27 18:23 | NUR ---
SHIFT SUMMARY PT A&O X4, ABLE TO MAKE NEEDS KNOWN, OBEYS COMMANDS, ANXIOUS AT TIMES, ABLE TO WALK SBA TO BRP/BASLINE PT REPORTS USING A CANE. CONTINUOUS SPO2 MONITORING, SPO2 GREATER THAN 90% WITH GOOD PLETH, PT ON 2L 02 VIA NC/ PT REPORTS THAT HE RECENTLY STARTED TO USE HOME O2 AND HIS BASELINE IS 2L. COTN INOUS CARDIAC MONITORING, @ THE START OF THE SHIFT PT HR 150 S RHYTHM AFIBSTARTED DILTIAZEM DRIP AT 10MG/HR/PT CONVERTED INTO SINUS THIS AFTERNOON AND DILTIAZEM DRIP PLACED ON SB/ HR HAS BEEN SINUS 90-100 S, PT WAS REPORTING CHEST PAIN AT THE BEGINNING OF THE SHIFT THAT WAS WORSE WHEN HE TAKES A DEEP BREATH/PT HAS DENIED CHEST P/P SINCE, PULSES PRESENT T/O, PT STABLE WITH MAP GREATER THAN 65. PT REPORTING FEELINGS OF CONSTIPATION THAT NEW ORDERS HAVE BEEN PLACED AND BOWEL MEDS HAVE BEEN GIVEN/NO BM THIS SHIFT. PT REPORTING DIFFICULTY STARTING VOID, PT ABLE TO VOID PALE YELLOW URINE IN BSC AND BRP.
[2024-07-27] MEDS ORDERED: LORazepam 0.5 MG Tab PO SCH (21:00)
[2024-07-28 02:59] VITALS: BP 126/94
[2024-07-28 05:52] LABS: BASOPHILS ABSOLUTE AUTO 0.04 K/mm3 (0.00-0.23); BASOPHILS PERCENT AUTO 0 % (0-2); EOSINOPHILS ABSOLUTE AUTO 0.26 K/mm3 (0.00-0.68); EOSINOPHILS PERCENT AUTO 2 % (0-6); Hematocrit 43.6 % (37.0-53.0); IMMATURE GRAN ABSOLUTE AUTO 0.05 K/mm3 (0.00-0.10); IMMATURE GRAN PERCENT AUTO 0 % (0-1); LYMPHOCYTES ABSOLUTE AUTO 0.64 K/mm3 (0.84-5.20); LYMPHOCYTES PERCENT AUTO 6 % (21-46); MONOCYTES ABSOLUTE AUTO 1.02 K/mm3 (0.16-1.47); MONOCYTES PERCENT AUTO 9 % (4-13); Mean Corpuscular HGB Conc 32.1 g/dL (31.5-36.5); Mean Corpuscular Volume 81 fL (80-100); Mean Platelet Volume 8.4 fL (9.1-12.4); NEUTROPHILS ABSOLUTE AUTO 9.22 K/mm3 (1.96-9.15); NEUTROPHILS PERCENT AUTO 82 % (41-73); Platelet Count 397 K/mm3 (150-400); RDW Coefficient Variation 16.4 % (11.7-14.2); RDW Standard Deviation 47.1 fL (35.1-46.3); Red Blood Cell Count 5.38 M/mm3 (4.30-5.90); White Blood Cell Count 11.23 K/mm3 (4.00-11.30)
[2024-07-28 06:18] LABS: International Normalized Ratio 1.06; Prothrombin Time Results 11.3 Sec (9.7-11.5)
--- NOTE | 2024-07-28 06:43 | NUR ---
SHIFT SUMMARY: PT IS A&OX4, SLOW TO ANSWER. HTN 146/105, SR IN THE 90'S, AFEBRILE, O2 SATS >90% ON 2L NC, POOR PERFUSION MAKES IT DIFFICULT TO ASSESS ACCURATE OXYGENATION. DENIES CP/PRESSURE, STILL CONTINUES TO FEEL SOB. C/O PAIN IN HIS NECK AND BACK, MEDICATED PER EMAR. TOLERATING A PUREED DIET, MADE PT NPO AFTER MN FOR POSSIBLE PROCEDURE. PT IS NAUSEATED AFTER NPO STATUS, MEDICATED PER EMAR. X1 ASSIST TO BSC. UNSURE OF URINE OUTPUT I THINK MOST OF IT IS MIXED WITH STOOL IN THE BSC. BLADDER SCAN THIS MORNING WAS 126. MULTIPLE LOOSE BM'S THIS SHIFT. BED IN LOWEST POSITION, CALL LIGHT WITHIN REACH. PT IN RECLINER MUCH OF THE NIGHT D/T FEELING SOB. HE STATES AT HOME HE SLEEPS IN A RECLINER. CALLS APPROPRIATELY AND IS ABLE TO ADVOCATE NEEDS EFFECTIVELY. FREQUENT ROUNDING DONE.
[2024-07-28 07:27] LABS: Magnesium, Blood 2.6 mg/dL (1.6-2.4)
[2024-07-28 07:29] LABS: Albumin, Blood 2.5 g/dL (3.4-5.0); Albumin/Globulin Ratio 0.6 (0.8-1.8); Bilirubin, Total 0.4 mg/dL (0.1-1.0); Bun/Creatinine Ratio 21.3 (12.0-20.0); Calcium, Blood 9.7 mg/dL (8.5-10.1); Creatinine, Blood 0.75 mg/dL (0.60-1.20); Total Protein, Blood 6.5 g/dL (6.4-8.2)
[2024-07-28 08:02] VITALS: BP 142/109
[2024-07-28] MEDS ORDERED: Potassium Chloride 20 MEQ TabCR PO SCH (09:00)
[2024-07-28] MEDS ORDERED: Multivitamins-Minerals Liquid 15 ML Oral Syringe PO SCH (09:00)
[2024-07-28] MEDS ORDERED: Ketorolac Tromethamine 15mg Vial IV PRN (09:05)
[2024-07-28 12:12] VITALS: BP 141/101
--- NOTE | 2024-07-28 14:29 | NUR ---
Met with pt and Lainey for goals of care meeting. Pt has a medical history of COPD, hypertension, hypothyroid, hyperlipidemia, Graves' disease, heart failure, and possible primary lung cancer, who presented with concern for worsening dyspnea, abdominal pain with nausea and vomiting. He has been hospitalized 3 times in the past year for pneumonia, toxic metabolic encephalopathy, GRISELDA. He is currently hospitalized with increased pleural effusions, and pericardial effusion. There is concern for a possible cancer with mets diagnosis, unconfirmed at this time. Palliative Care met with pt and to discuss these issues, and pt continued to state he "wants to eat and drink." Noted he appears confused, with poor short term memory. After discussion with pt about goals, Lainey states she is familiar with hospice, and is interested in pursuing this route if pt also agreeable. Pt agreeable, stating he wants to go home and not return to the hospital. He is also clear that he wants to eat and drink without restriction. Both pt and discussed the options at length, ultimately deciding on home with hospice. Dr. James to see pt and today to review the case.
[2024-07-28 15:05] VITALS: BP 132/88
[2024-07-28] MEDS ORDERED: LORazepam 2 MG/ML 1ML Injection IV SCH (16:00)
[2024-07-28] MEDS ORDERED: Metoprolol Tartrate 1 MG/ML 5 ML VIAL IV PRN (16:45)
--- NOTE | 2024-07-28 18:46 | NUR ---
SHIFT SUMMARY PT A&O X4, ABLE TO MAKE NEEDS KNOWN, OBEYS COMMANDS, ANXIOUS AT TIMES, ABLE TO WALK SBA TO BRP. SPO2 GREATER THAN 90% WITH GOOD PLETH/ SPO2 DIFFICULT TO MAINTAIN READING DUE TO PERFUSION-EAR PROB WORKING THE BED, PT ON 2L 02 VIA NC. CONTINUOUS TELE MONITORING, HR HAS BEEN SINUS 90-110 S, STRONG RADIAL PULSES WITH FAINT PEDAL PULSES, PT STABLE WITH MAP GREATER THAN 65, PT CAP REFILL GREATER THAN 3 SECOND TO FINGERS,MODERATE BLE EDEMA . PT REPORTING FEELINGS OF CONSTIPATION AND NAUSEA WHEN TAKING ORAL INPUT, PT TO BE NPO @ MIDNIGHT FOR PROCEDURE TOMORROW. PT HAVING MULTIPLE BOWEL MOVEMENTS THIS SHIFT WITH SOME RELIEF, PT REPORTS THAT HIS ABD DOES STILL FEEL UNCOMFORTABLE THAT HE FEELS THERE IS STILL MORE STOOL THAT NEEDS TO COME OUT. SPEECH THERAPY ROUNDED ON PT THIS SHIFT, NEW ORDERS PLACED. PALATIVE CARE ROUNDED ON PT THIS SHIFT WITH IN THE ROOM. DISCUSSED WITH DR. KENDRICK ABOUT NPO STATS RELATED TO PO MEDICATIONS. HOLD PO MEDICATIONS AT THIS TIME AND MONITOR FOR PRN IV MEDICATIONS.
[2024-07-28 20:10] VITALS: BP 118/98
[2024-07-28 23:46] VITALS: BP 137/97
[2024-07-29] VITALS (13 sets, daily range): BP systolic 113–162; BP diastolic 84–113
[2024-07-29] MEDS ORDERED: LORazepam 2 MG/ML 1ML Injection IV ONE (05:30)
[2024-07-29] MEDS ORDERED: Pantoprazole Sodium 20 MG Tab PO SCH (06:00)
[2024-07-29] MEDS ORDERED: Pantoprazole Sodium 40 MG Injection IV SCH (06:13)
--- NOTE | 2024-07-29 06:44 | NUR ---
SHIFT SUMMARY: PT IS A&OX4, SLOW TO ANSWER. HTN, SR-ST 90'S-120'S, OCCASIONALLY IN THE 140'S -150'S WITH EXERTION OR ANXIETY. PT REQUESTING AN ADDITIONAL DOSE OF ATIVAN THIS MORNING. HE IS FEELING MORE ANXIOUS ABOUT THE PROCEDURE TODAY, AND ABOUT HIM GOING HOME TO . CALLED HOSPITALIST ELODIA. SEE NEW ORDER. AFEBRILE, O2 SATS >90% ON 2L NC, POOR PERFUSION MAKES IT DIFFICULT TO ASSESS ACCURATE OXYGENATION. C/O CHEST TIGHTNESS, BUT STATES THE FEELING HAS BEEN THE SAME. STILL CONTINUES TO FEEL SOB. ZIO PATCH IN PLACE TO LEFT CHEST. C/O PAIN IN HIS NECK AND BACK, MEDICATED PER EMAR. PT CONSUMING ICE CHIPS, NPO AFTER MN FOR POSSIBLE PROCEDURE. X1 ASSIST TO BSC. UNSURE OF URINE OUTPUT HE MISSED THE URINAL. NO BM THIS SHIFT. BED IN LOWEST POSITION, CALL LIGHT WITHIN REACH. PT IN RECLINER MUCH OF THE NIGHT D/T FEELING SOB. CALLS APPROPRIATELY AND IS ABLE TO ADVOCATE NEEDS EFFECTIVELY. FREQUENT ROUNDING DONE.
[2024-07-29 07:43] LABS: BASOPHILS ABSOLUTE AUTO 0.09 K/mm3 (0.00-0.23); BASOPHILS PERCENT AUTO 1 % (0-2); EOSINOPHILS ABSOLUTE AUTO 0.58 K/mm3 (0.00-0.68); EOSINOPHILS PERCENT AUTO 5 % (0-6); Hematocrit 45.6 % (37.0-53.0); Hemoglobin 14.2 g/dL (13.5-17.5); IMMATURE GRAN ABSOLUTE AUTO 0.04 K/mm3 (0.00-0.10); IMMATURE GRAN PERCENT AUTO 0 % (0-1); LYMPHOCYTES ABSOLUTE AUTO 0.82 K/mm3 (0.84-5.20); LYMPHOCYTES PERCENT AUTO 7 % (21-46); MONOCYTES ABSOLUTE AUTO 1.34 K/mm3 (0.16-1.47); MONOCYTES PERCENT AUTO 12 % (4-13); Mean Corpuscular HGB 25.4 pg (26.0-34.0); Mean Corpuscular HGB Conc 31.1 g/dL (31.5-36.5); Mean Corpuscular Volume 82 fL (80-100); Mean Platelet Volume 8.3 fL (9.1-12.4); NEUTROPHILS ABSOLUTE AUTO 8.53 K/mm3 (1.96-9.15); NEUTROPHILS PERCENT AUTO 75 % (41-73); Platelet Count 417 K/mm3 (150-400); RDW Coefficient Variation 16.4 % (11.7-14.2); RDW Standard Deviation 47.7 fL (35.1-46.3); Red Blood Cell Count 5.59 M/mm3 (4.30-5.90)
[2024-07-29 08:09] LABS: Albumin, Blood 2.5 g/dL (3.4-5.0); Albumin/Globulin Ratio 0.6 (0.8-1.8); Bilirubin, Total 0.4 mg/dL (0.1-1.0); Bun/Creatinine Ratio 25.7 (12.0-20.0); Calcium, Blood 10.3 mg/dL (8.5-10.1); Creatinine, Blood 0.74 mg/dL (0.60-1.20); Free Thyroxine 1.25 ng/dL (0.70-1.60); Globulin, Blood 4.4 g/dL (2.2-4.0); Phosphorus, Blood 2.9 mg/dL (2.5-4.9); Thyroid Stimulating Hormone 15.2 uIU/mL (0.360-4.800); Total Protein, Blood 6.9 g/dL (6.4-8.2)
--- NOTE | 2024-07-29 09:35 | NUR ---
Spiritual care visit conducted. Patient is sitting on a chair and alert. He tells me about his poor diagnosis and the possibility of going home on hospice. Patient shares about his limited ability to speak and limited energy. He talks about his and family and his concerns for them. He speaks of the support and love that he feels from family friends and druze members. He states that he is ready to and feels secure in his Christain lesley regarding and dying. I normalized his experience, and provided anxiety containment , gentle pastoral counselor and prayer. Patient responded well and showed signs of being encouraged in his lesley and being comforted. I will continue to remain available to patient and family.
[2024-07-29] MEDS ORDERED: NS 500 ML IV SCH (10:10)
--- NOTE | 2024-07-29 11:20 | NUR ---
"Spiritual Care | Spouse support Spouse was un th cafeteria when she welcomed my visit. Spouse updated this wood boatbuilder on the progress and struggles of caring for the Pt. L:isten with empathy and a calming presence. Spouse verbalizes the comfort that spiritual care has meant to both she and the Pt. and that the plan would be to go home on hospice with [facility]. Spouse verbalized gratitude for the spiritual care visit."
--- NOTE | 2024-07-29 11:41 | NUR ---
Update: As discussed with the pt, his Lainey and Dr. Gamino yesterday afternoon, the current plan is to go through with pericardiocentesis to improve symptoms prior to discharge home with hospice.
[2024-07-29] MEDS ORDERED: Levothyroxine Sodium 100 MCG Vial IV SCH (11:45)
[2024-07-29] MEDS ORDERED: Heparin Sodium 1000 Units/ML 10ML MDV ONE (14:27)
[2024-07-29] MEDS ORDERED: NS 500 ML IV ONE (14:27)
[2024-07-29] MEDS ORDERED: Midazolam HCl 1MG / ML 2ML Vial ONE (14:47)
[2024-07-29] MEDS ORDERED: NS 1,000 ML IV ONE (14:48)
[2024-07-29] MEDS ORDERED: FentaNYL Citrate 50 MCG/ML 2 ML Injection ONE (14:48)
[2024-07-29 16:03] LABS: Automated BF RBC Count 1.108 M/mm3 (0-0); Automated BF WBC Count 4.161 K/mm3 (0-999); RBC Count, Body Fluid 1108000 /mm3 (0-0)
[2024-07-29 16:04] LABS: Body Fluid WBC Count 4161 /mm3 (0-999)
[2024-07-29 16:07] LABS: Appearance, Body Fluid Bloody (Clear); Color, Body Fluid Red (None-Yellow)
[2024-07-29 16:34] LABS: Albumin, Body Fluid 1.8 g/dL; Glucose, Body Fluid 37 mg/dL; Triglycerides, Body Fluid 38 mg/dL
[2024-07-29 16:45] LABS: pH, Body Fluid 8.2
[2024-07-29 16:52] LABS: Lactate Dehydrogenase, Body Fl 2877 U/L; Protein, Body Fluid 4.6 g/dL
[2024-07-29 17:58] LABS: Total Cell Count, Body Fluid 100
[2024-07-29] MEDS ORDERED: Morphine Sulfate 20 MG/1ML 1 ML Oral Syringe SL PRN (18:50)
[2024-07-29] MEDS ORDERED: LORazepam 2 MG/ML 1ML Injection IV PRN (18:50)
--- NOTE | 2024-07-29 19:41 | NUR ---
SHIFT SUMMARY PT WOKE UP DESIORIED THIS AM BUT QUICKY BECAME REORINETED. PT A&O X4, ABLE TO MAKE NEEDS KNOWN, OBEYS COMMANDS, ANXIOUS AT TIMES, ABLE TO WALK SBA TO BSC. SPO2 GREATER THAN 90% WITH GOOD PLETH/ SPO2 DIFFICULT TO MAINTAIN READING DUE TO PERFUSION-EAR PROB WORKING THE BED, PT ON 2L 02 VIA NC, THIS AM PT DID FEEL SOB PT PUT ON 4L O2 VIA NC FOR BRIEF MOMENT AND THEN RETURNED TO BASELINE, LUNGS SOUND DIM ON THE RIGHT SIDE AND ON THE LEFT THEY HAVE INTERMITTENT EXPIRATORY WHEEZE AND LLL CRACKLES. CONTINUOUS TELE MONITORING, HR HAS BEEN SINUS 100-130 S T/O MOST OF THE SHIFT DID HAVE A SPIKE OF 150 S/MEDICATED PER ORDERS, STRONG RADIAL PULSES WITH FAINT PEDAL PULSES, PT STABLE WITH MAP GREATER THAN 65, SBP AND DBP NARROW WITHIN 10-20MMHG, PT CAP REFILL GREATER THAN 3 SECOND TO FINGERS,MODERATE BLE EDEMA. ABD DISTENDED WITH FEELINGS OF CONSTIPATION, PT HAVING MULTIPLE BOWEL MOVEMENTS WITH SOME RELIEF, BOWEL TONES PRESENT IN ALL 4Q. PT LEFT TO PROCEDURE @ APPROX 1445. PT RETURNED FROM PROCEDURE WITH PERICARDIAL DRAIN THAT HAD SEROUS FLUID, DRESSING C/D/I, NO OOZING UNDERDRESSING. PT BECOMING LESS CYSONOTIC POST PROCEDURE AND HEART AND LUNG SOUND HEARD BETTER THAN COMPARED TO THIS MORNING, SBP AND DBP NO LONGER NARROW.
--- NOTE | 2024-07-30 06:29 | NUR ---
SHIFT SUMMARY: PT IS A&OX4, CONFUSED AT TIMES AND SLOW TO ANSWER. COMFORT CARE ORDERS. MADE PT COMFORTABLE T/O SHIFT, MEDICATING PER EMAR. PT CONSUMING WHAT HE WANTS, THIS IS MAKING HIM COUGH MORE. PERICARDIAL DRAIN AT BEGINNING OF SHIFT HAD 550ML OUT IN SANGUINEOUS FLUID. MINIMAL OUTPUT T/O THE NIGHT. DRESSING WITH SCANT AMOUNT OF DRAINAGE. X1 ASSIST TO BSC. SMALL AMOUNT OF URINE OUTPUT, AND ONE SMALL BM. PT IN RECLINER MUCH OF THE NIGHT D/T FEELING SOB. CHAIR ALARM IN PLACE. CALL LIGHT WITHIN REACH, CALLS AND IS ABLE TO ADVOCATE NEEDS EFFECTIVELY. PT CALLED HIS AT 0400, ASKING HER TO BRING HIM IN SOME FOOD. SHE BROUGHT IN MULTIPLE OPTIONS, HE CONSUMED A SMALL AMOUNT. FREQUENT ROUNDING DONE.
[2024-07-30] MEDS ORDERED: Morphine Sulfate 10 MG/ML 1MLSYR INH PRN (09:00)
[2024-07-30] MEDS ORDERED: Levothyroxine Sodium 100 MCG Vial IV SCH (09:00)
--- NOTE | 2024-07-30 11:50 | NUR ---
NURSING PCU DAYSHIFT: Assumed care of pt at approx 0700. Alert, anxious this a.m., intermittently confused but redirectable. Pt pulled PIV, 2nd PIV remains in place. Pericardial drain in place at initial assessment, minimal output, site stable. C/O general pain/discomfort, treating w/meds and positioning. Comfort care status at this time. Phone call placed to spouse this a.m., update provided, informed of pt request to have her at bedside. Spouse arrived shortly after phone call, plan of care discussed, questions/concerns addressed, pt immediately calmed with spouse presence. Cardiology at bedside at approx 1100. Pericardial drain removed, sterile gauze and tegaderm placed. sustainability coordinator at bedside for intake assessment. Pt and family anticipating/hopeful for discharge home on hospice today. Pt currently OOB in chair, alarm in place. RT at bedside for breathing tx, meds continue to be administered to assist w/discomfort and air hunger. Pt denies any questions though frequently states that he wants to go home. Continue to monitor for changes.
[2024-07-30] MEDS ORDERED: KETO10 PO (14:14)
[2024-07-30] MEDS ORDERED: AMOCLA875 PO (14:14)
[2024-07-30] MEDS ORDERED: BISA10S PR (14:14)
[2024-07-30] MEDS ORDERED: LACT10SY PO (14:15)
[2024-07-30] MEDS ORDERED: MORP20L SL (14:16)
[2024-07-30] MEDS ORDERED: DULCOLAX400 MG/5 M PO (14:16)
[2024-07-30] MEDS ORDERED: MORPHINE S10 MG/1 M2 INH (14:17)
[2024-07-30] MEDS ORDERED: NITR.4SL SL (14:17)
[2024-07-30] MEDS ORDERED: VISBIOME 112.51 EACH PO (14:18)
[2024-07-30] MEDS ORDERED: SENNA LAXATIVE8.6 MG PO (14:27)
[2024-07-30] MEDS ORDERED: DOCU100 PO (14:27)
[2024-07-30] MEDS ORDERED: MIRALAX17 GM PO (14:28)
--- NOTE | 2024-07-30 14:45 | NUR ---
"Spiritual Care | Spousal support Pts. spouse is in the cafeteria at the lunch hour and welcomes my visit. 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 Spouse shares the difficult journey of arranging hospice and getting insurance to help with it. Tessa, from Palliative Care is also present and is offering a hopeful plan of action. Spouse verbalized gratitude for the spiritual care visit."
--- NOTE | 2024-07-30 15:37 | NUR ---
Pt going home with [facility]. There were some insurance issues that have since been resolved. Pt and both express relief, stating they ready to focus on the patient's comfort.
--- NOTE | 2024-07-30 18:14 | NUR ---
NURSING PCU DAYSHIFT SUMMARY: Pt has been in better spirits and less confused t/o the afternoon. Able to rest well after medication administration for pain management. Sitting in recliner at this time visiting with family. BM x2, abd discomfort improving. Plan to discharge home tomorrow with hospice, pt and spouse verbalize understanding. Pt and family deny any current needs. Call light in reach, cont to monitor until rpt is given to NOC RN.
--- NOTE | 2024-07-30 21:14 | NUR ---
ASSUMED CARE OF THIS PATIENT AT 1915. PT IS A+O X4 AT THIS TIME, ABLE TO MAKE NEEDS KNOWN. SITTING UP IN CHAIR, CALL LIGHT IN REACH. PATIENT ABDOMEN NOTED TO BE DISTENDED, PATIENT IS HAVING PAIN MEDICATED PER EMAR. PT IS COMFORT CARE, SEE COMFORT CARE ASSESSMENT.
--- NOTE | 2024-07-31 05:02 | NUR ---
SHIFT SUMMARY PATIENT REMAINS COMFORT CARE, A+O X4 BUT DOES WAKE UP CONFUSED AT TIMES, ABLE TO REORIENT PT NEEDED. PT IS SBA TO THE BATHROOM. NC IN PLACE. MEDICATED PER EMAR FOR COMFORT, PT EXPRESSED INCREASING ISSUES W/ SOB/ AIR HUNGER. PT SPENT ALL NIGHT UP IN THE RECLINER, PILLOWS NEHIND BACK AND UNDER ARMS, TAB ALARM IN PLACE FOR SAFETY. CALL LIGHT IN REACH, WILL REPORT TO ONCOMING RN.
--- NOTE | 2024-07-31 12:40 | NUR ---
DISCHARGE SUMMARY ASSUMED CARE OF PT AT 0700. PT RESTING IN RECLINER. PT ON COMFORT CARE. MEDICATING PER EMAR. IN ROOM WITH PT. HOSPICE NURSE TO BEDSIDE TO DISCUSS DISCHARGE WITH PT AND HIS . DISCHARGE EDUCATION REVIEWED WITH PT AND HIS . PTS REVIEWED MEDICATION LIST AND DENIED HAVING ANY QUESTIONS. MEDICATED PT BEFORE DEPARTURE. IV REMOVED, PT TOLERATED WELL, GAUZE AND COBAN IN PLACE. HOSPICE NURSE TO MEET PT AT HOME. PT LEFT VIA WHEELCHAIR WITH RN.
== END 2024-07-31 12:20 | disposition hospice, home (50) | DRG 180 ==
LOC: ER 10:19 → ERHOLD 13:51 → PCU 13:51 → MEDS 23:02 → PCU 07-27 06:54
PROVIDERS: Family Medicine Adult Medicine; Physician Assistant; Student in an Organized Health Care Education/Training Program; ADMIT Hospitalist
PROC: 0W9D30Z Drainage of Pericardial Cavity with Drainage Device, Percutaneous Approach (ICD-10-PCS; principal; 2024-07-29)
DX: C34.90 Malignant neoplasm of unspecified part of unspecified bronchus or lung (principal); J69.0 Pneumonitis due to inhalation of food and vomit; J96.21 Acute and chronic respiratory failure with hypoxia; I50.32 Chronic diastolic (congestive) heart failure; I31.31 Malignant pericardial effusion in diseases classified elsewhere; R18.0 Malignant ascites; Z66 Do not resuscitate; Z51.5 Encounter for palliative care; J44.9 Chronic obstructive pulmonary disease, unspecified; I11.0 Hypertensive heart disease with heart failure; E03.9 Hypothyroidism, unspecified; E78.5 Hyperlipidemia, unspecified; E05.00 Thyrotoxicosis with diffuse goiter without thyrotoxic crisis or storm; Z96.653 Presence of artificial knee joint, bilateral; E87.6 Hypokalemia; K59.00 Constipation, unspecified; G89.29 Other chronic pain; F41.8 Other specified anxiety disorders; I48.91 Unspecified atrial fibrillation; Z98.890 Other specified postprocedural states; Z87.442 Personal history of urinary calculi; Z98.1 Arthrodesis status
CPT/HCPCS: 0202U; 33016; 36415; 71045; 74177; 80048; 80053; 82042; 82803; 82945; 82947; 83615; 83735; 83880; 83986; 84100; 84132; 84157; 84439; 84443; 84478; 84484; 85025; 85610; 85730; 87070; 87075; 87205; 88108; 88305; 88341; 88342; 89051; 92610; 93005; 93010; 93308; 93321; 94640; 94660; 94664; 94760; 94762; 96361; 96365-59; 96375; 99152; 99153; 99285-25; A9270; C1729; C1769; J0295; J1644; J1885; J1940; J2060; J2250; J2270; J2405; J2470; J3010; J3475; J3480; J7030; J7040; J7050; Q9967